=== PATIENT | male | born 1955 | race Caucasian/White ===

== ENCOUNTER 2017-02-06 21:07 | Inpatient (IN) ==
[2017-02-06] MEDS ORDERED: DUONEB (A & A) INH ONE (23:01)
[2017-02-07 00:09] LABS: BASO% 0.1 % (0.0-0.8); EOS# 0.86 X1000 (0.0-0.7); EOS% 4.2 % (0.0-10.0); HEMATOCRIT 28.4 % (42.0-52.0); HEMOGLOBIN 9.8 g/dL (14.0-18.0); IMM GRAN# 0.24 X1000 (0.0-0.04); IMM GRAN% 1.2 % (0.0-0.5); LYMPH# 2.65 X1000 (1.2-3.4); LYMPH% 12.8 % (20.5-51.1); MANUAL DIFF NEEDED? NO; MCH 28.7 PG (27-31); MCHC 34.5 g/dL (33-37); MONO# 1.93 X1000 (0.11-0.59); MONO% 9.3 % (1.7-9.3); MPV 8.5 FL (7.4-10.4); NEUT% 72.4 % (42.2-75.2); PLT 594 X1000 (130-400); RBC 3.42 XMIL (4.7-6.1)
[2017-02-07] MEDS ORDERED: VANCOMYCIN 1 GM/NS 1 GM/250 ML IVPB IV ONE ×2 (00:16→03:00)
[2017-02-07] MEDS ORDERED: MERREM 1 GM in NS 50 ML IV SCH (00:16)
[2017-02-07 00:33] LABS: AGAP 14; ALBUMIN 2.9 g/dL (3.5-5.0); ALKALINE PHOSPHATASE 59 U/L (32-122); BUN 11 mg/dL (8-22); CALCIUM 8.9 mg/dL (8.8-10.2); CHLORIDE 88 mmol/L (98-107); COSMO 262; GOT 15 U/L (10-34); GPT 35 U/L (10-44); POTASSIUM 4.1 mmol/L (3.5-5.1); SODIUM 131 mmol/L (136-145); TCO2 29 mmol/L (25-35); TOTAL BILIRUBIN 0.31 mg/dL (0.20-1.00); TOTAL PROTEIN 6.2 g/dL (6.3-8.3)
[2017-02-07 01:03] LABS: URINE MICRO REVIEW NEEDED? NO; URINE SOURCE CLEAN CATCH
[2017-02-07 01:20] LABS: BILIRUBIN URINE NEGATIVE (NEGATIVE); BLOOD URINE NEGATIVE (NEGATIVE); COLOR STRAW; GLUCOSE URINE NEGATIVE (NEGATIVE); LEUKOCYTES URINE SMALL (NEGATIVE); NITRITE URINE NEGATIVE (NEGATIVE); PH URINE 7.5; PROTEIN URINE NEGATIVE (NEGATIVE); SP GRAVITY URINE 1.003; TURBIDITY URINE CLEAR (CLEAR); UROBILINOGEN URINE NORMAL (NORMAL)
[2017-02-07 01:22] LABS: UR EPITHELIAL CELLS <10 /HPF (<10); URINE BACTERIA NEGATIVE /HPF; URINE CULTURE NEEDED? YES; URINE RBC <10 /HPF (<10); URINE WBC <10 /HPF (<10)
[2017-02-07] MEDS ORDERED: VANCOMYCIN IV PER PHARMACY MISC SCH (02:21)
--- NOTE | 2017-02-07 03:16 | HISTORY AND PHYSICAL ---
REASON FOR ADMISSION: A 2-week history of a cough productive of greenish sputum, shortness of breath, fever, and chills. HISTORY OF PRESENT ILLNESS: Mr. Felix Soto is a 61-year-old male with a past medical history of COPD on home O2, prior alcohol and tobacco abuse which he stopped over the last couple of years, reflux disease, and hypertension. His last admission here was in July of 2016. At that time, he had severe COPD with prior scarring and pneumonia. He was treated and says since then, he has been doing rather okay up until 2 weeks ago when he developed cough productive of greenish sputum, fever, chills, and mild shortness of breath. He was seen in the ER over a week ago, and started on Zithromax and an oral cephalosporin. He says after 4 days after being on this regimen, his fever and chills subsided and so did his cough but a few days after completing this course of antibiotics, his fever, chills, and shortness of breath have returned. This is the reason why he has come back to the hospital. He denies any arthralgias or rash. He admits to having just a 5- pound weight loss over the last 4 months. He denies any contact with anyone with chronic cough except his who has a chronic cough from COPD. This has not gotten any worse, neither has she lost any weight. No history of travel. He denies any PND, orthopnea, leg swelling, or chest pain. He denies any contact with any sick animals. No wheezing. He has a longstanding history of chronic steroid use but this has not increased nor decreased. REVIEW OF SYSTEMS: Twelve system review is negative. Positive findings per HPI. ALLERGIES: Penicillin which causes a rash. Clindamycin causes airway obstruction. HOME MEDICATIONS: He takes Norvasc 2.5 mg b.i.d., Zanaflex 4 mg at bedtime, [place] 10 mg q.6, and he takes Advair 250/50 one puff b.i.d. FAMILY HISTORY: Notable for PE in his dad, CHF in mother. No diabetes. SURGICAL HISTORY: He has only had hand surgery following trauma. SOCIAL HISTORY: He is . Lives with his . Stopped smoking and drinking alcohol 2 years ago. Denies any active illicit drug use. He denies any IV drug abuse in the past. LAB WORK: Chest x-ray reviewed by me shows a lot of scarring in both lungs. However, he appears to have multiple cavitary type lesions in the right upper lobe and a few in the left upper lobe. His white count is 20,000, hemoglobin and hematocrit 9 and 28, platelets 593,000. Chemistry is pending. PHYSICAL EXAMINATION: VITAL SIGNS: Temperature is 98.1 degrees, respirations 15, heart rate 88, blood pressure 105/55, he is 98% on room air. GENERAL: He is a pleasant, chronically ill, middle-aged, man who is not in acute distress. He is A and O x3. Normal mood and affect. HEENT: Head is normocephalic, atraumatic. Eyes: PERRLA, EOMI. Anicteric and not pale. ENT and oral exam is grossly negative for any erythema or pharyngeal exudates. No central cyanosis is noted. NECK: Supple. No JVD, carotid bruits, or thyromegaly. Good skin turgor. CHEST: Decreased entry in both lung arellano with a few expiratory wheezes. No crepitations. Chest is also barrel-shaped. CARDIOVASCULAR: First and second heart sounds heard. No gallops, murmurs, rubs. Rhythm is regular. ABDOMEN: Abdomen is full, soft. No focal areas of tenderness. No rebound or guarding. No mass or organomegaly. Bowel sounds are hyperactive. RECTAL: Examination deferred at this time. EXTREMITIES: No edema, clubbing, or peripheral cyanosis. Pulses distally intact with good volume and symmetrical. NEUROLOGICAL: No focal deficits. SKIN: Intact. No breakdown, lesions, or erythema. MUSCULOSKELETAL: Examination is grossly normal otherwise. ASSESSMENT: 1. Bilateral pneumonia with cavitary lesions. This could represent usually nosocomial pathogen (i.e., pseudomonas) colonizing his lungs. However, cannot rule out staphylococcal as a likely pathogen here too. Fungal pathogens are need to be considered. In my estimation, based on the patient's history, tuberculosis is highly unlikely due to the fact that he has multiple cavitary lesions but does not necessarily rule it out. Other differentials one needs to consider will be autoimmune diseases, highly unlikely. The patient will need to be worked up for immunodeficiency disorder. However, his chronic use of steroids and his defective lung architecture puts him at risk for a host of pathogens. We will start the patient on broad- spectrum coverage for pseudomonas and staphylococcus. Legionella also needs to be considered, although I do not think it is the primary pathogen here. If it does not get better, we will consider atypical coverage. Consult infectious disease and pulmonology to see the patient. 2. Chronic obstructive pulmonary disease. We will start the patient on short-acting bronchodilators, consider long-acting bronchodilators. However, due to the fact this patient has had recurrent pneumonias, I will not put him on inhaled corticosteroid therapy as this may increase his risk for recurrent pneumonias. Consider long-acting bronchodilators and long- acting muscarinic agents for better bronchodilation which have been shown to be slightly better than the combination of inhaled corticosteroids and long-acting bronchodilators. This also has the benefit of decreasing the risk of inhaled corticosteroids. 3. Hypertension. Continue treatment with Norvasc. 4. Other additional studies and tests. Do a QuantiFERON test, AFB smear, human immunodeficiency virus, some fungal urinary tests, and even Legionella urinary test, just to mention a few. I will defer to infectious disease and pulmonology for further workup. My rationale for this patient having more of a bacterial etiology is due to the fact that he had a good response a week ago to antibacterial agents. The patient only relapsed after he completed a course of treatment which makes me believe that this could be bacterial in origin. cc: MD Carlos A Clark MD
[2017-02-07] MEDS: MILK OF MAGNESIA PO ONE ×2 (03:17→03:26)
[2017-02-07] MEDS: LOVENOX SUBQ SCH (03:17)
[2017-02-07] MEDS: NORCO-10 PO PRN ×3 (03:26→22:26)
[2017-02-07] MEDS: DUONEB (A & A) INH SCH ×6 (03:43→23:01)
[2017-02-07 07:10] LABS: BASO% 0.2 % (0.0-0.8); HEMATOCRIT 27.6 % (42.0-52.0); HEMOGLOBIN 9.4 g/dL (14.0-18.0); MANUAL DIFF NEEDED? YES; MCH 28.6 PG (27-31); MCHC 34.1 g/dL (33-37); MCV 83.9 FL (81-99); MONO# 1.57 X1000 (0.11-0.59); MONO% 8.5 % (1.7-9.3); MPV 8.5 FL (7.4-10.4); PLT 611 X1000 (130-400); RBC 3.29 XMIL (4.7-6.1)
[2017-02-07 07:12] LABS: BANDS 2 % (0-1); EOS 8 % (1-10); LYMPHS 14 % (21-51); MONO 10 % (1-9)
[2017-02-07 07:13] LABS: HYPOCHROM OCCASIONAL
--- NOTE | 2017-02-07 07:46 | Diag Imaging Result Document ---
PROCEDURE NAME: CHEST-2 VIEWS - 02/06/2017 CHEST X-RAY, 2 VIEWS: COMPARISON: 01/30/2014. FINDINGS: Stable diffuse infiltrate throughout the right upper lobe. This is superimposed on biapical pulmonary fibrosis. Stable severe COPD. Heart size is normal. IMPRESSION: Stable right upper lobe infiltrate superimposed on significant biapical pulmonary fibrosis.
[2017-02-07 07:57] LABS: AGAP 12; ALBUMIN 2.9 g/dL (3.5-5.0); ALKALINE PHOSPHATASE 58 U/L (32-122); BUN 7 mg/dL (8-22); CALCIUM 8.6 mg/dL (8.8-10.2); CHLORIDE 92 mmol/L (98-107); COSMO 262; GOT 13 U/L (10-34); GPT 31 U/L (10-44); POTASSIUM 3.6 mmol/L (3.5-5.1); SODIUM 132 mmol/L (136-145); TCO2 28 mmol/L (25-35); TOTAL BILIRUBIN 0.35 mg/dL (0.20-1.00); TOTAL PROTEIN 6.4 g/dL (6.3-8.3)
--- NOTE | 2017-02-07 09:03 | CONSULTATION ---
DATE OF CONSULTATION: 02/07/2017 CONCLUSION: Patient is admitted to the hospital with a right upper lobe infiltrate. 1-2 weeks ago he was given antibiotics through the emergency room but they failed to clear his infiltrate. The hospitalist who looked at the x-ray said it was cavitary. However, the x-ray from the patient's 1st visit to the emergency room and the 1 from last night show a right upper lobe infiltrate but no evidence of cavities were mentioned graft. The radiologist read both the x- rays and said that there was a right upper lobe infiltrate but did not mention cavities being present. Therefore, I think most likely the patient has a bacterial pneumonia. He does have pulmonary fibrosis as an underlying disease and this may have caused the infiltrate to look like there were cavities in it. I am also concerned that the patient may have an immunoglobulin deficiency in view of the fact that he has had recurrent episodes of pneumonia. RECOMMENDATIONS: I have placed the patient on a combination of vancomycin and cefepime. Also, I have ordered another diagnostic test, namely pneumococcal urinary antigen. Also , I plan to check the patient's immunoglobulin levels. DISCUSSION: The patient has about a 2-week history of cough with chest congestion. He says he brings up some green to yellow sputum with it. He has had fever and he is short of breath, especially with exertion. He was given a prescription for Ceftin and azithromycin from the emergency room but it did not improve his cough much at all. As mentioned above , the chest x-ray shows a right upper lobe infiltrate with no mention made of cavities. The patient's CBC shows a white count of 18,450, hemoglobin 9.4, and platelet count 611,000/ sputum Gram stain shows white cells but no bacteria. Urine culture is pending. PAST MEDICAL HISTORY/REVIEW OF SYSTEMS: Eyes and Ears: He denies difficulty hearing or seeing. Neck: No stiffness. Respiratory: See present illness. Cardiovascular: No chest pain or palpitations. GI: No nausea, vomiting, or diarrhea. : No dysuria or flank pain. Endocrine: Patient is not a diabetic. He does not have thyroid disease. Hematologic: No history of anemia or bleeding tendency. Bones, Joints, Muscles: No joint swelling or myalgia. Neurologic: No motor or sensory loss. The patient is not having seizures. The remainder of the patient's review of systems was completed and there were no further complaints. PREVIOUS HOSPITALIZATIONS AND OPERATIONS: He has been admitted before for pneumonia. He has also had surgery performed on his hand. MEDICAL DISEASES: Positive for hypertension, COPD, and degenerative joint disease of the spine. INFECTIOUS DISEASE HISTORY: Positive for pneumonia and UTI. FAMILY HISTORY: Positive for hypertension, pulmonary embolus, and congestive heart failure. SOCIAL HISTORY: [place] He stopped smoking cigarettes, drinking alcoholic beverages, and abusing drugs years ago. He is . He has dogs and cats for pets. He is disabled. PHYSICAL EXAMINATION: Vital Signs: The patient weighs 140 pounds. His temperature is 98 degrees, pulse 71, respirations 18, blood pressure is 108/60. Generally: This is an ill- appearing, middle-aged male. He is in no acute distress. Head, Eyes, Ears, Nose, and Throat: He can hear my spoken words and see near objects. His oral hygiene is very poor. He is missing many of his teeth. Some teeth appear frankly necrotic. Neck: No meningismus. Lungs: Clear to auscultation. Cardiovascular: Patient had an increased AP diameter. Abdomen: Soft and not tender. Lungs: Clear to auscultation. Cardiovascular: Heart rate is regular. Extremities: There is no leg edema. Integument: No rash noted. Neurologic: Patient is alert. He can move his extremities. There is no tremor. His sensation was intact to touch. Thank you for the consult. cc: Xander Mcclain MD [facility] SYSTEMTomasz
[2017-02-07] MEDS: PREDNISONE PO SCH (10:06)
[2017-02-07] MEDS: NORVASC PO SCH ×2 (10:07→22:26)
[2017-02-07] MEDS: MAXIPIME 2 GM/NS 2 GM/100 ML IVPB IV SCH ×2 (10:21→22:22)
[2017-02-07 11:09] LABS: HIV ANTIBODY SCREEN SEE COMMENTS
[2017-02-07] MEDS: VANCOMYCIN 1,500 MG in NS 250 ML IV SCH (16:16)
[2017-02-07] MEDS: PEPCID PO SCH (22:26)
[2017-02-07] MEDS: ZANAFLEX PO SCH (22:26)
[2017-02-08] MEDS: VANCOMYCIN 1,500 MG in NS 250 ML IV SCH (03:21)
[2017-02-08] MEDS: LOVENOX SUBQ SCH (03:21)
[2017-02-08] MEDS: DUONEB (A & A) INH SCH ×6 (03:40→22:47)
[2017-02-08 06:39] LABS: MANUAL DIFF NEEDED? NO
[2017-02-08 06:49] LABS: BASO% 0.2 % (0.0-0.8); EOS# 0.97 X1000 (0.0-0.7); EOS% 5.2 % (0.0-10.0); HEMATOCRIT 25.8 % (42.0-52.0); HEMOGLOBIN 8.7 g/dL (14.0-18.0); IMM GRAN# 0.15 X1000 (0.0-0.04); IMM GRAN% 0.8 % (0.0-0.5); LYMPH# 2.92 X1000 (1.2-3.4); LYMPH% 15.6 % (20.5-51.1); MCH 28.3 PG (27-31); MCHC 33.7 g/dL (33-37); MONO# 1.58 X1000 (0.11-0.59); MONO% 8.5 % (1.7-9.3); MPV 8.7 FL (7.4-10.4); NEUT% 69.7 % (42.2-75.2); PLT 521 X1000 (130-400); RBC 3.07 XMIL (4.7-6.1)
[2017-02-08 07:12] LABS: AGAP 11; BUN 6 mg/dL (8-22); CALCIUM 8.3 mg/dL (8.8-10.2); CHLORIDE 91 mmol/L (98-107); COSMO 254; POTASSIUM 4.1 mmol/L (3.5-5.1); SODIUM 128 mmol/L (136-145); TCO2 26 mmol/L (25-35)
[2017-02-08] MEDS: MAXIPIME 2 GM/NS 2 GM/100 ML IVPB IV SCH ×2 (08:19→21:47)
[2017-02-08] MEDS: PEPCID PO SCH ×2 (08:19→21:46)
[2017-02-08] MEDS: PREDNISONE PO SCH (08:19)
[2017-02-08] MEDS: NORVASC PO SCH ×2 (08:19→21:46)
[2017-02-08] MEDS: NORCO-10 PO PRN ×3 (08:19→21:46)
--- NOTE | 2017-02-08 11:26 | CONSULTATION ---
DATE OF CONSULTATION: 02/08/2017 REFERRING PHYSICIAN: Dr. Nava. CHIEF COMPLAINT: Productive cough with greenish sputum, shortness of breath, fever and chills. HISTORY OF PRESENT ILLNESS: This is a 61-year-old male with a past medical history of COPD. He is currently on home O2. He has a complaint of a productive cough with greenish thick sputum and mild shortness of breath. His O2 sat is 100% on room air. ALLERGIES: Penicillin and clindamycin. HOME MEDICATIONS: He takes prednisone 20 mg p.o. b.i.d. Hydrocodone 10 mg per 325 mg 1 every 6 hours as needed. Advair Diskus 1 puff twice a day. Azithromycin 250 mg as directed. Norvasc 2.5 mg b.i.d. Albuterol every 6 hours as needed. Atrovent nebs every 6 hours as needed. Combivent Respimat two puffs every 6 hours as needed. Zanaflex 4 mg p.o. at bedtime. PAST SURGICAL HISTORY: Hand surgery following trauma. PAST MEDICAL HISTORY: Hypertension, COPD, bronchitis. FAMILY HISTORY: Notable for PE in his dad, CHF in his mother. No diabetes. SOCIAL HISTORY: Lives with his . Past history of smoking and drinking 2 years ago. Denies illicit drug use. LABORATORY DATA: White blood cells 18.66 red blood cells 3.07, hemoglobin 8.7, hematocrit 25.8. Sodium 128, chloride 91, BUN 6, creatinine 0.5, calcium 8.3. REVIEW OF SYSTEMS: A 10-point review of systems was obtained and the pertinent is listed in the HPI, otherwise noncontributory. PHYSICAL EXAMINATION: VITAL SIGNS: Temperature 98.4, blood pressure 131/95, pulse 84, respirations 21, O2 sat 100%.General: Appears chronically ill, alert and oriented x3. Normal mood and affect. HEENT: Head is normocephalic, atraumatic. Eyes: PERRLA noted. Neck: Supple. Chest: Decreased entry, wheezes bilaterally and barrel shaped chest. Cardiovascular: S1 and S2 auscultated. Regular rate and rhythm. Abdomen: Soft, nontender. Bowel sounds present in all 4 quadrants. Extremities: Without edema or cyanosis. Good pedal pulses bilaterally. Skin: Warm, dry and intact. ASSESSMENT AND PLAN: 1. Bilateral pneumonia. Continue vancomycin, prednisone. 2. COPD. Continue bronchodilators. 3. Hypertension. Continue current medications. Thank you for the courtesy of this consult. Dictated by ELVIN Mitchell for Stefania Bullock MD cc: ELVIN Mitchell MD
--- NOTE | 2017-02-08 11:37 | Diag Imaging Result Document ---
PROCEDURE NAME: CT THORAX W/O CONTRAST - 02/08/2017 CT CHEST: A CT dose reduction protocol was used. COMPARISON: 03/17/2015. FINDINGS: There is extensive consolidation of the right upper lobe containing some noticeable air bronchograms. This also extends into the right middle lobe. The consolidation is very irregular owing to the extensive bullous emphysema in the lung apices. The left upper lobe infiltrate that was present in 2014 has largely resolved into some pulmonary scarring. There is mucus plugging of segmental airways in the posterior segment of the left upper lobe. There is diffuse chronic bronchitis. Heart size remains normal. No acute abnormalities in the upper abdomen. No pleural effusion. Bony structures are intact. IMPRESSION: 1. Severe COPD. 2. Extensive right upper lobe pneumonia. 3. Mucus plugging of left upper lobe segmental bronchi. 4. Reactive mediastinal lymphadenopathy. [facility]
--- NOTE | 2017-02-08 14:47 | PROGRESS NOTE ---
DATE: 02/08/2017 PRESENT ILLNESS: The patient is being treated for an extensive right upper lobe pneumonia with mucous plugging of left upper lobe segmental bronchi and reactive mediastinal lymphadenopathy. Patient also has severe COPD. MEDICATIONS: The patient currently is on vancomycin and cefepime. PHYSICAL EXAMINATION: Vital Signs: Temperature is 98.4 degrees, pulse 76, respirations 17, blood pressure 104/58. Generally: This is a chronically ill-appearing middle-aged male. He is in no acute distress. Lungs: Bibasilar rales. Cardiovascular: Heart rate is regular. Abdomen: Soft and nontender. LAB AND X-RAY: The patient does not have an x-ray for today. The patient's CBC shows a white count of 18,660, hemoglobin 8.7, and platelet count and creatinine 0.5 with a GFR of greater than 60. The patient had AFB smears and cultures marked to do but there was refusal to do that because of the low volume of sputum. Patient's CBC shows a white count of 18,660, hemoglobin 8.7 and platelet count is 611,000. Creatinine is 0.5. GFR is greater than 60. Immunoglobulin levels are normal. HIV is nonreactive. Legionella and pneumococcal antigens in the urine were negative. ASSESSMENT AND PLAN: The patient has a right upper lobe pneumonia. My plan would be to continue treating him with the current antibiotics pending culture results. COMORBIDITIES: Include COPD and poor oral hygiene and continuation of the patient to stop smoking cigarettes or drinking alcoholic beverages or abusing drugs. Comorbidities include cigarette smoking and congestive heart failure. cc: Xander Mcclain MD
--- NOTE | 2017-02-08 15:19 | PROGRESS NOTE ---
DATE: 02/08/2017 SUBJECTIVE: Patient notes that he is feeling a little bit better. Still having some increased work of breathing, dyspnea on exertion. Denies any chest pain, fevers. Denies any change in the production of his cough. Denies any headaches or change in vision. PHYSICAL: Temp 98 degrees, pulse 76, respiratory 17, BP 104/58, sat 98% on room air.General: Patient is a well-developed well-nourished male who appears older than his stated age. He is awake, alert, oriented. He is sitting in the bed watching television. He currently is in mild respiratory distress. HEENT: Normocephalic. Neck: Supple. CV: Regular rate and rhythm. Chest: Decreased breath sounds. Wheezing bilaterally but equal bilaterally. Abdomen: Soft. Extremities: Moves all extremities. No edema. Neurologic: No changes. LABS: WBC is 18. Hemoglobin and hematocrit 8 and 27. Sodium 128. ASSESSMENT: 1. Hyponatremia. Sodium continues to drift down slowly. 2. COPD with exacerbation. He is wheezing. 3. Bilateral pneumonia with cavitary lesions. 4. Hypertension. PLAN: We will continue patient on his current antibiotics. Will recheck his sodium in the a.m. Continue to follow. Further orders as needed. cc: Rigo Nava MD
[2017-02-08] MEDS: VANCOMYCIN 1,700 MG in NS 250 ML IV SCH (16:34)
[2017-02-08] MEDS: ZANAFLEX PO SCH (21:46)
[2017-02-09] MEDS: DUONEB (A & A) INH SCH ×6 (03:25→23:09)
[2017-02-09] MEDS: VANCOMYCIN 1,700 MG in NS 250 ML IV SCH ×2 (04:39→16:14)
[2017-02-09] MEDS: NORCO-10 PO PRN ×3 (04:48→17:31)
[2017-02-09] MEDS: LOVENOX SUBQ SCH (06:11)
[2017-02-09 06:31] LABS: HEMATOCRIT 26.2 % (42.0-52.0); HEMOGLOBIN 8.8 g/dL (14.0-18.0); MCH 28.9 PG (27-31); MCHC 33.6 g/dL (33-37); MCV 85.9 FL (81-99); MPV 8.6 FL (7.4-10.4); RBC 3.05 XMIL (4.7-6.1)
[2017-02-09 06:49] LABS: AGAP 12; ALBUMIN 3.1 g/dL (3.5-5.0); ALKALINE PHOSPHATASE 63 U/L (32-122); BUN 7 mg/dL (8-22); CALCIUM 8.8 mg/dL (8.8-10.2); CHLORIDE 90 mmol/L (98-107); COSMO 256; GOT 22 U/L (10-34); GPT 30 U/L (10-44); MAGNESIUM 1.5 mg/dL (1.5-2.7); POTASSIUM 4.6 mmol/L (3.5-5.1); SODIUM 129 mmol/L (136-145); TCO2 27 mmol/L (25-35); TOTAL BILIRUBIN 0.31 mg/dL (0.20-1.00); TOTAL PROTEIN 5.8 g/dL (6.3-8.3)
[2017-02-09] MEDS: NORVASC PO SCH ×2 (10:45→21:19)
[2017-02-09] MEDS: PREDNISONE PO SCH (10:45)
[2017-02-09] MEDS: PEPCID PO SCH ×2 (10:46→21:19)
[2017-02-09] MEDS: MAXIPIME 2 GM/NS 2 GM/100 ML IVPB IV SCH ×2 (10:46→21:21)
--- NOTE | 2017-02-09 11:39 | PROGRESS NOTE ---
DATE: 02/09/2017 SUBJECTIVE: The patient states he may be feeling a little bit better. Notes that he is still having a productive cough although less production. He is trying to get out of bed but gets short of breath. Denies any chest pains or palpitations when he attempts to ambulate. PHYSICAL EXAMINATION: Vital Signs: Temperature 98, pulse 78, respiratory rate 12, blood pressure 115/63. Satting 100% on room air. General: Patient is awake, alert. He is currently in no respiratory distress. He is noted to have a little bit of wheezing. HEENT: Normocephalic, atraumatic. Neck: Supple. Cardiovascular: Regular rate. No appreciable murmurs. Chest decreased but equal breath sounds bilaterally. Positive wheezing. Positive rhonchi. Abdomen: Soft. Extremities: Moves all extremities. No edema. Neurologic: No changes. ASSESSMENT: 1. Bilateral pneumonia with cavitary lesions currently on cefepime and vancomycin. We will continue both of these. 2. Leukocytosis. White count remains at 18-20. Certainly this could be a prednisone effect. He does not appear to have any worsening infectious symptoms. We will repeat chest x-ray in the a.m. 3. Chronic obstructive pulmonary disease. Certainly appears to be his stable baseline currently. 4. Hypertension. Blood pressure is stable at 102-115 systolic. 5. Chronic congestive heart failure, systolic, stable. 6. Chronic tobacco abuse. Stable. cc: Rigo Nava MD
[2017-02-09] MEDS: ZANAFLEX PO SCH (21:19)
[2017-02-10] MEDS: NORCO-10 PO PRN ×4 (00:14→18:52)
[2017-02-10] MEDS: VANCOMYCIN 1,700 MG in NS 250 ML IV SCH (03:10)
[2017-02-10] MEDS: DUONEB (A & A) INH SCH ×6 (03:30→23:03)
[2017-02-10] MEDS: LOVENOX SUBQ SCH (06:23)
[2017-02-10] MEDS: MAXIPIME 2 GM/NS 2 GM/100 ML IVPB IV SCH ×2 (10:29→20:35)
[2017-02-10] MEDS: PEPCID PO SCH ×2 (10:29→20:36)
[2017-02-10] MEDS: PREDNISONE PO SCH (10:29)
[2017-02-10] MEDS: NORVASC PO SCH ×2 (10:29→20:35)
--- NOTE | 2017-02-10 13:13 | Diag Imaging Result Document ---
PROCEDURE NAME: CHEST-2 VIEWS - 02/10/2017 CHEST, 2 VIEWS: FINDINGS: Compared to 02/06/2017. There are severe COPD changes. The right upper lobe opacity appears stable. The left upper lobe opacity appears stable. Compared to the previous exam, there are no significant interval changes identified. IMPRESSION: Stable exam compared to 02/06/2017. MTDD
--- NOTE | 2017-02-10 13:36 | PROGRESS NOTE ---
DATE: 02/10/2017 SUBJECTIVE: Patient notes he is feeling tremendously better this morning. Denies any change in his cough. Denies any change in his congestion. He states that he is hoping that he can home in the a.m. PHYSICAL EXAMINATION: Vital Signs: Temperature 97, pulse 80, respiratory rate 10, blood pressure 92/66, satting 100% percent on room air. General: Patient is awake, alert. He is in no current respiratory distress. He states he is feeling better. HEENT: Normocephalic, atraumatic. Neck: Supple. CV: Regular rate. Chest: Relatively clear. Abdomen: Soft. Extremities: Moves all extremities. Neurologic: No focal changes. Skin: Warm and dry. No rashes. ASSESSMENT: 1. Bilateral pneumonia with cavitary lesions continues to improved. 2. Chronic obstructive pulmonary disease with mild exacerbation. 3. Hypertension. 4. Congestive heart failure. 5. Tobacco abuse. 6. Hyponatremia. 7. Leukocytosis. PLAN: Patient currently appears to be much improved from initial admission. We will stop vancomycin and continue to follow. Hopefully home in a day or two. cc: Rigo Nava MD
[2017-02-10] MEDS ORDERED: MILK OF MAGNESIA PO ONE (18:55)
[2017-02-10] MEDS: ZANAFLEX PO SCH (20:35)
[2017-02-11] MEDS: NORCO-10 PO PRN ×4 (01:27→23:12)
[2017-02-11] MEDS: DUONEB (A & A) INH SCH ×6 (03:45→23:16)
[2017-02-11] MEDS: LOVENOX SUBQ SCH (05:08)
[2017-02-11] MEDS: PREDNISONE PO SCH (09:40)
[2017-02-11] MEDS: NORVASC PO SCH ×2 (09:40→20:12)
[2017-02-11] MEDS: MAXIPIME 2 GM/NS 2 GM/100 ML IVPB IV SCH ×2 (09:40→20:12)
[2017-02-11] MEDS: PEPCID PO SCH ×2 (09:40→20:13)
[2017-02-11] MEDS ORDERED: DULCOLAX PR ONE (09:58)
--- NOTE | 2017-02-11 11:02 | Diag Imaging Result Document ---
PROCEDURE NAME: ABDOMEN FLAT/UPRIGHT - 02/11/2017 FLAT AND UPRIGHT ABDOMEN, TWO VIEWS: FINDINGS: No free air beneath the diaphragm. There is prominent stool in the mid and distal colon. No organomegaly. The patient has scoliosis with degenerative spine changes. There are several pelvic calcifications believed to be phleboliths. IMPRESSION: Constipation.
[2017-02-11] MEDS: MIRALAX PO SCH ×2 (11:27→20:13)
[2017-02-11] MEDS: LACTULOSE PO SCH ×2 (11:27→20:13)
[2017-02-11] MEDS ORDERED: NS 1,000 ML IV SCH (19:00)
[2017-02-11] MEDS ORDERED: VANCOMYCIN IV PER PHARMACY MISC SCH (19:45)
[2017-02-11] MEDS: ZANAFLEX PO SCH (20:13)
[2017-02-11 21:07] LABS: URINE MICRO REVIEW NEEDED? NO; URINE SOURCE CLEAN CATCH
[2017-02-11 21:14] LABS: COLOR YELLOW; TURBIDITY URINE CLEAR (CLEAR)
[2017-02-11 21:15] LABS: BILIRUBIN URINE NEGATIVE (NEGATIVE); BLOOD URINE NEGATIVE (NEGATIVE); GLUCOSE URINE NEGATIVE (NEGATIVE); LEUKOCYTES URINE NEGATIVE (NEGATIVE); NITRITE URINE NEGATIVE (NEGATIVE); PH URINE 7.5; PROTEIN URINE NEGATIVE (NEGATIVE); SP GRAVITY URINE 1.005; UROBILINOGEN URINE NORMAL (NORMAL)
--- NOTE | 2017-02-11 21:15 | PROGRESS NOTE ---
DATE: 02/11/2017 SUBJECTIVE: The patient is sitting up in bed and states that he feels good and wants to go home. He has no complaints except that he has not had a bowel movement in 5 days. OBJECTIVE: Vital Signs: Temperature 99 degrees, blood pressure 115/65, heart rate 85, respirations 18, O2 saturations 99% on room air. General: This is a chronically ill-appearing, elderly male, sitting up in bed. Psych: In no acute distress. HEENT: Normocephalic atraumatic. Heart: S1, S2. Normal. Regular rate and rhythm. Lungs: Clear to auscultation bilaterally. No crackles. No rales. Abdomen: Positive bowel sounds. Soft, nontender, nondistended. Extremities: No edema. No cyanosis. Neurological: Patient is alert and oriented x3. LABS: CBC: White blood cell count 18, hemoglobin 8.8, hematocrit 26, platelets 525,000. Chem: Sodium 129, potassium 4.6, chloride 90, CO2 27, BUN 7, creatinine 0.5, glucose 80. ASSESSMENT AND PLAN: 1. Extensive right upper lobe pneumonia. We will continue on the current IV antibiotic regimen as directed by Dr. Mcclain. Continue with incentive spirometry, supplemental oxygen ,and bronchodilator therapy. 2. Constipation. We will start the patient on scheduled laxatives. 3. Severe chronic obstructive pulmonary disorder. Continue on bronchodilator therapy and supplemental oxygen. 4. Anemia. We will check iron studies. 5. Hyponatremia. We will start the patient on gentle IV fluid hydration. We will also check a urine osmolality and urine sodium. 6. Chronic back pain. Continue on p.r.n. [place]. 7. Deep vein thrombosis prophylaxis. Continue on Lovenox. cc: Teresa Mejia MD
[2017-02-11 21:16] LABS: UR EPITHELIAL CELLS <10 /HPF (<10); URINE BACTERIA NEGATIVE /HPF; URINE RBC <10 /HPF (<10); URINE WBC <10 /HPF (<10)
[2017-02-11] MEDS: VANCOMYCIN 1.7 GM in NS 250 ML IV SCH (22:18)
--- NOTE | 2017-02-11 22:30 | PROGRESS NOTE ---
DATE: 02/11/2017 PRESENT ILLNESS: The patient has bilateral extensive upper lobe pneumonia with possible mucus plugging of bronchus. The patient has severe COPD. MEDICATIONS: The patient is receiving IV cefepime and vancomycin. PHYSICAL EXAMINATION: Vital Signs: Temperature is 99.4 degrees, pulse 85, respirations 18, blood pressure 115/65. Generally: This is a chronically ill-appearing, middle-aged male. He is in no acute distress. Lungs: Clear to auscultation. Cardiovascular: Regular heart rate. Abdomen: Soft and nontender. Thorax: The patient has an increased AP diameter of the chest. LAB AND X-RAY: The patient's CBC today showed a white count of 18,410, hemoglobin 8.8, and platelet count 525,000. Creatinine is 0.5. GFR is greater than 60. Chest x-ray shows stable bilateral opacities. ASSESSMENT AND PLAN: The patient has bilateral upper lobe pneumonia. My plan is to have a PICC put in the patient and send the patient home on IV cefepime and vancomycin which he is receiving here. I have put in a consultation for [facility] to supply the antibiotic and I have requested that the patient see me in the office 2 weeks after discharge. COMORBIDITIES: COPD, poor oral hygiene, cigarette smoking, alcohol consumption and congestive heart failure. cc: Xander Mcclain MD
[2017-02-12] MEDS: DUONEB (A & A) INH SCH ×6 (04:16→23:25)
[2017-02-12] MEDS: NORCO-10 PO PRN ×3 (05:48→18:13)
[2017-02-12] MEDS: LOVENOX SUBQ SCH (05:48)
[2017-02-12 06:24] LABS: BASO% 0.2 % (0.0-0.8); EOS# 1.26 X1000 (0.0-0.7); HEMATOCRIT 26.3 % (42.0-52.0); IMM GRAN# 0.09 X1000 (0.0-0.04); IMM GRAN% 0.5 % (0.0-0.5); LYMPH# 1.69 X1000 (1.2-3.4); LYMPH% 9.5 % (20.5-51.1); MANUAL DIFF NEEDED? YES; MCH 28.8 PG (27-31); MCHC 34.2 g/dL (33-37); MONO# 1.41 X1000 (0.11-0.59); MONO% 7.9 % (1.7-9.3); MPV 8.8 FL (7.4-10.4); NEUT% 74.9 % (42.2-75.2); PLT 547 X1000 (130-400); RBC 3.13 XMIL (4.7-6.1)
[2017-02-12 06:29] LABS: INR 1.08; PROTIME 11.4 Seconds (9.2-11.7)
[2017-02-12 06:36] LABS: AGAP 12; BUN 7 mg/dL (8-22); CALCIUM 8.7 mg/dL (8.8-10.2); CHLORIDE 92 mmol/L (98-107); COSMO 260; POTASSIUM 4.1 mmol/L (3.5-5.1); SODIUM 131 mmol/L (136-145); TCO2 27 mmol/L (25-35)
[2017-02-12 06:59] LABS: EOS 2 % (1-10); LYMPHS 12 % (21-51); MONO 2 % (1-9)
[2017-02-12 07:00] LABS: BANDS 2 % (0-1); HYPOCHROM 1+
[2017-02-12] MEDS ORDERED: FLEET MINERAL OIL ENEMA PR ONE (09:00)
[2017-02-12] MEDS: MAXIPIME 2 GM/NS 2 GM/100 ML IVPB IV SCH ×2 (09:51→21:01)
[2017-02-12] MEDS: LACTULOSE PO SCH (09:51)
[2017-02-12] MEDS: NORVASC PO SCH ×2 (09:52→21:02)
[2017-02-12] MEDS: PREDNISONE PO SCH (09:52)
[2017-02-12] MEDS: MIRALAX PO SCH (09:52)
[2017-02-12] MEDS: PEPCID PO SCH ×2 (09:52→21:02)
[2017-02-12] MEDS: VANCOMYCIN 1.7 GM in NS 250 ML IV SCH ×2 (11:50→21:10)
--- NOTE | 2017-02-12 13:29 | Diag Imaging Result Document ---
PROCEDURE NAME: CHEST-1 VIEW - 02/12/2017 PORTABLE CHEST X-RAY: COMPARISON: 02/10/2017. FINDINGS: There is worsening opacification in the coarse, distorted right upper lobe. This appears mostly as fluid accumulation in pre-existing bullae or cavities. Stable scarring and nodular opacity at the left apex. Stable COPD changes. IMPRESSION: Significant worsening opacification in the right lung apex, in the distorted, destroyed lung consistent with fluid filling pre-existing cavities/bullae.
--- NOTE | 2017-02-12 15:54 | PROGRESS NOTE ---
DATE: 02/12/2017 SUBJECTIVE: The patient is sitting up in bed. He states that he has had 2 bowel movements so far between last night and this morning. OBJECTIVE: Vital Signs: Temperature 97.9 degrees, blood pressure 97/52, heart rate 76, respirations 20, O2 saturations 98% on room air. General: This is a chronically ill-appearing male lying in bed in no acute distress. Head: Normocephalic, atraumatic. Heart: S1, S2. Normal. Regular rate and rhythm. Lungs: Equal air entry bilaterally. No wheezing. No rales. Abdomen: Positive bowel sounds. Soft, nontender, nondistended. Extremities: No edema. No cyanosis. No calf tenderness. Neurologic: The patient is alert and oriented x3. LABS: White blood cell count 17, hemoglobin 9, hematocrit 26, platelets 547,000. Sodium 131, potassium 4.1, chloride 92, CO2 27, BUN 7, creatinine 0.5, glucose 85. ASSESSMENT AND PLAN: 1. Bilateral upper lobe pneumonia. The chest x-ray done today shows worsening of the pneumonia. Will defer to Dr. Mcclain regarding the antibiotic therapy. 2. Severe chronic obstructive pulmonary disease. Continue with bronchodilator therapy and supplement. 3. Hyponatremia. Slowly improving. Continue on IV fluid hydration. 4. Constipation. Resolved. The patient has had 2 bowel movements. Will continue on scheduled laxatives. 5. Chronic back pain. Continue on [place]. 6. Deep vein thrombosis prophylaxis. Continue on Lovenox. 7. Disposition. The patient will be discharged home with IV antibiotics. That will be followed by [facility] once cleared by Dr. Mcclain. cc: Teresa Mejia MD
--- NOTE | 2017-02-12 18:33 | PROGRESS NOTE ---
DATE: 02/12/2017 PRESENT ILLNESS: The patient has extensive upper lobe pneumonia with possible mucous plugging of the bronchus. Patient also has severe COPD. MEDICATIONS: The patient is receiving IV vancomycin and cefepime. PHYSICAL EXAMINATION: Vital Signs: Temperature is 97.8 degrees, pulse 87, respirations 16, blood pressure 126/98. General: This is a chronically ill-appearing, middle-aged male. He is in no acute distress. Thorax: He has an increased AP diameter of the chest. Cardiovascular: Heart rate is regular. Lungs: Clear to auscultation. Abdomen: Soft and nontender. Extremities: Patient has a PICC in the right arm. LABORATORY AND X-RAY: Chest x-ray shows worse right upper lobe opacification with fluid filling cavities. The patient's CBC today showed a white count of 17,880, hemoglobin 9 , and platelet count 547,000. Creatinine is 0.5. GFR is greater than 60. ASSESSMENT AND PLAN: 1. We were going to be sending the patient home today on IV antibiotics, but since the x-ray looks worse, Dr. Bullock plans to bronchoscope the patient tomorrow and further treatment will be dependent on what is found at the bronchoscopy. 2. Comorbidities include chronic obstructive pulmonary disease, poor oral hygiene, cigarette smoking, alcohol consumption and congestive heart failure. cc: Xander Mcclain MD MTDD
[2017-02-12] MEDS: ZANAFLEX PO SCH (21:02)
[2017-02-13] MEDS: NORCO-10 PO PRN ×4 (00:26→19:36)
[2017-02-13] MEDS: DUONEB (A & A) INH SCH ×6 (02:50→22:46)
[2017-02-13] MEDS: COLACE PO SCH ×3 (06:10→22:20)
[2017-02-13] MEDS: MOVANTIK PO SCH (06:27)
[2017-02-13] MEDS: LOVENOX SUBQ SCH (06:27)
[2017-02-13 08:18] LABS: BASO% 0.3 % (0.0-0.8); EOS# 1.15 X1000 (0.0-0.7); EOS% 5.9 % (0.0-10.0); HEMATOCRIT 25.3 % (42.0-52.0); HEMOGLOBIN 8.4 g/dL (14.0-18.0); IMM GRAN# 0.08 X1000 (0.0-0.04); IMM GRAN% 0.4 % (0.0-0.5); LYMPH# 1.76 X1000 (1.2-3.4); MANUAL DIFF NEEDED? YES; MCH 27.9 PG (27-31); MCHC 33.2 g/dL (33-37); MCV 84.1 FL (81-99); MONO# 1.16 X1000 (0.11-0.59); MONO% 5.9 % (1.7-9.3); NEUT% 78.5 % (42.2-75.2); PLT 507 X1000 (130-400); RBC 3.01 XMIL (4.7-6.1)
[2017-02-13 08:32] LABS: AGAP 12; BUN 6 mg/dL (8-22); CALCIUM 8.8 mg/dL (8.8-10.2); CHLORIDE 91 mmol/L (98-107); COSMO 254; POTASSIUM 3.9 mmol/L (3.5-5.1); SODIUM 128 mmol/L (136-145); TCO2 25 mmol/L (25-35)
[2017-02-13 08:49] LABS: LYMPHS 4 % (21-51); MONO 4 % (1-9)
[2017-02-13] MEDS: PREDNISONE PO SCH (09:46)
[2017-02-13] MEDS: NORVASC PO SCH ×4 (09:47→22:20)
[2017-02-13] MEDS: PEPCID PO SCH ×3 (09:47→22:21)
[2017-02-13] MEDS: MAXIPIME 2 GM/NS 2 GM/100 ML IVPB IV SCH ×3 (10:07→22:20)
[2017-02-13] MEDS ORDERED: XYLOCAINE 2% ONE (10:31)
[2017-02-13] MEDS ORDERED: XYLOCAINE 2% VISCOUS ONE (10:31)
[2017-02-13] MEDS ORDERED: SODIUM CHLORIDE 0.9% 20 ML ONE (10:46)
[2017-02-13] MEDS ORDERED: EPINEPHRINE ONE (10:46)
[2017-02-13] MEDS ORDERED: FENTANYL ONE (11:50)
[2017-02-13] MEDS ORDERED: VERSED ONE (11:50)
[2017-02-13] MEDS ORDERED: DIPRIVAN 1% ONE (11:51)
--- NOTE | 2017-02-13 12:09 | OPERATIVE NOTE ---
PROCEDURE DATE: 02/13/2017 REFERRING PHYSICIAN: Dr. Xander Mcclain. PROCEDURE: Bronchoscopy. INDICATION: Extensive pneumonia, worsening. DESCRIPTION: Consent obtained. Conscious sedation administered via Anesthesia Department. Fluoroscopy scanning used for sampling. The flexible bronchoscope was passed with local anesthesia through the right nostril. Normal vocal cord movements. All major segments visualized. No significant endobronchial lesions. With fluoroscopy scanning, we visualized all major segments, took washings for cultures and cytology from all major segments, and then did brushing from right upper lobe area. Sent for microbiology. Patient tolerated the procedure well. Fluoroscopy scanning afterward showed no pneumothorax; however, an official chest x-ray is also requested. IMPRESSIONS: 1. Extensive pneumonia. 2. No endobronchial lesions. 3. Awaiting microbiology results. cc: Stefania Bullock MD
[2017-02-13] MEDS ORDERED: ANESTHESIA PB SET 88 IN 5742 ONE (12:58)
[2017-02-13] MEDS ORDERED: XYLOCAINE-MPF 2% ONE (12:58)
[2017-02-13] MEDS ORDERED: LR 1,000 ML ONE (12:58)
[2017-02-13] MEDS ORDERED: NS 500 ML ONE (13:13)
[2017-02-13] MEDS: VANCOMYCIN 1.7 GM in NS 250 ML IV SCH (13:14)
[2017-02-13] MEDS ORDERED: SAMSCA PO ONE (15:00)
--- NOTE | 2017-02-13 16:24 | PROGRESS NOTE ---
DATE: 02/13/2017 SUBJECTIVE: The patient is resting comfortably in bed. Scheduled for a bronchoscopy today. OBJECTIVE: Vital signs: Temperature 99, blood pressure 120/65 heart rate 88, respirations 14, O2 saturation 94% on room air. General: This is an elderly male lying in bed in no apparent distress. Head: Normocephalic and atraumatic. Heart: S1, S2. Normal. Regular rate and rhythm. Lungs: Coarse breath sounds bilaterally. Abdomen: Positive bowel sounds, soft , nontender. Extremities: No edema. Neurologic: The patient is alert and oriented x3. LABORATORY: White blood cell count 19, hemoglobin 8.4, hematocrit 25, platelets 507. Sodium 128, potassium 3.9, chloride 91, CO2 25, BUN 6 ASSESSMENT AND PLAN: 1. Severe bilateral lobe pneumonia. The patient is scheduled for bronchoscopy today. Continue on IV antibiotic therapy. 2. Severe chronic obstructive pulmonary disease. Continue with bronchodilator therapy and supplement. 3. Hyponatremia. Will give the patient a dose of [place] to get the sodium up. 4. Chronic back pain. Continue on p.r.n. [place]. 5. Constipation. Continue with scheduled laxatives and Movantik. 6. Deep vein thrombosis prophylaxis. We will restart Lovenox today. cc: Teresa Mejia MD MTDD
[2017-02-13] MEDS: ZANAFLEX PO SCH ×2 (19:36→22:21)
[2017-02-14] MEDS: VANCOMYCIN 1.7 GM in NS 250 ML IV SCH (01:26)
[2017-02-14] MEDS: NORCO-10 PO PRN ×2 (01:26→08:32)
[2017-02-14] MEDS: DUONEB (A & A) INH SCH ×2 (03:05→07:23)
[2017-02-14] MEDS: LOVENOX SUBQ SCH (05:31)
[2017-02-14] MEDS: MOVANTIK PO SCH (05:31)
[2017-02-14 07:57] LABS: BASO% 0.4 % (0.0-0.8); EOS% 5.6 % (0.0-10.0); HEMATOCRIT 26.4 % (42.0-52.0); HEMOGLOBIN 8.9 g/dL (14.0-18.0); IMM GRAN# 0.07 X1000 (0.0-0.04); IMM GRAN% 0.4 % (0.0-0.5); LYMPH% 9.5 % (20.5-51.1); MANUAL DIFF NEEDED? NO; MCH 28.8 PG (27-31); MCHC 33.7 g/dL (33-37); MCV 85.4 FL (81-99); MONO# 1.07 X1000 (0.11-0.59); MPV 9.4 FL (7.4-10.4); NEUT% 78.1 % (42.2-75.2); PLT 551 X1000 (130-400); RBC 3.09 XMIL (4.7-6.1)
[2017-02-14] MEDS: MAXIPIME 2 GM/NS 2 GM/100 ML IVPB IV SCH (08:32)
[2017-02-14] MEDS: NORVASC PO SCH (08:33)
[2017-02-14] MEDS: PREDNISONE PO SCH (08:33)
[2017-02-14] MEDS: COLACE PO SCH (08:33)
[2017-02-14] MEDS: PEPCID PO SCH (08:33)
[2017-02-14 08:35] VITALS: BP 108/76
[2017-02-14 09:02] LABS: AGAP 16; BUN 6 mg/dL (8-22); CHLORIDE 95 mmol/L (98-107); COSMO 268; POTASSIUM 3.7 mmol/L (3.5-5.1); SODIUM 136 mmol/L (136-145); TCO2 25 mmol/L (25-35)
--- NOTE | 2017-02-14 11:27 | PROGRESS NOTE ---
DATE: 02/14/2017 PRESENT ILLNESS: The patient has an extensive upper lobe pneumonia. He also has severe chronic obstructive pulmonary disease. Yesterday the patient underwent bronchoscopy. According to Dr. Bullock's operative note, no tumor was found and the patient had bronchial washings sent for cultures. MEDICATIONS: This is day 7 of treatment with vancomycin and cefepime. PHYSICAL EXAMINATION: Vital Signs: Temperature is 98.7 degrees, pulse 81, respirations 19, blood pressure 116/68. General: This is an ill-appearing middle-aged male, who is in no acute distress. Thorax: There is increased AP diameter of the chest. Lungs: No rales or rhonchi were heard. Cardiovascular: Heart rate is regular. Extremities: Patient has a PICC in his right arm. The site is not erythematous or swollen. LAB AND X-RAY: There is no new x-ray. The bronchial washings on Gram stain showed no bacteria. There is no new CBC or creatinine. ASSESSMENT AND PLAN: Patient has pneumonia. I plan to continue his current medications pending the results of the bronchial washing cultures. I have asked the microbiology laboratory to send me the final results on the bronchial washings. I plan to continue the patient on his current antibiotics and see him in the office 2 weeks after discharge. COMORBIDITIES: Include chronic obstructive pulmonary disease, poor oral hygiene, cigarette smoking, alcohol consumption, and congestive heart failure. I will be seeing the patient in the office 2 weeks after discharge. cc: Xander Mcclain MD
--- NOTE | 2017-02-20 17:17 | PROVIDER DOCUMENTATION ---
This chart was entered by Madison Hightower Scribe, acting as scribe for Linden Perea MD. HPI-General Adult - General Chief Complaint: Fever Stated Complaint: FEVER Time Seen by Provider: 02/06/17 21:25 Source: patient Allergies/Adverse Reactions: Patient Allergies Allergy/AdvReac Type Severity Reaction Status Date / Time Penicillins Allergy Mild RASH Verified 07/31/16 16:10 clindamycin Allergy RASH Verified 07/31/16 16:10 Home Medications: Home Medication List Medication Instructions Recorded Confirmed Last Taken Type Amlodipine Besylate [Norvasc] 2.5 mg PO BID 01/07/13 02/07/17 01/30/17 07:00 History Hydrocodone/APAP 10 mg/325 mg 1 each PO Q6H PRN PRN 03/09/16 02/07/17 01/30/17 10:00 History [Palmer-10] Tizanidine [Zanaflex] 4 mg PO QHS 03/09/16 02/13/17 01/29/17 20:00 History Fluticasone/[place] 250/50 INH 1 puff INH RTBID #1 inhaler 08/02/16 02/07/1702/11 14:00 Rx [Advair 250/50 Diskus] Prednisone 20 mg PO BID #10 tablet 01/30/17 02/07/17 Unknown Rx Albuterol Sulfate 0.63 mg IH Q6HR 02/07/17 02/07/17 Unknown History Famotidine [Pepcid] 20 mg PO BID 02/07/17 02/07/17 Unknown History Ipratropium Harper Neb [Atrovent 0.5 mg INH RTQ6H 02/07/17 02/07/17 Unknown History Neb] Ipratropium/Albuterol Sulfate 2 puff INH Q6HR 02/07/17 02/07/17 Unknown History [Combivent Respimat Inhal [place]] Cefepime HCl/D5w 2 gm IV Q12H #1 piggyback 02/14/17 Unknown Rx [Cefepime-Dextrose 2 gm/50 ml] Vancomycin/0.9 % Sod Chloride 1.7 gm IV Q12H #1 plast..bag 02/14/17 Unknown Rx [Vanco 1.75 G/250 ml-0.9% NaCl] - History of Present Illness -Gen Adult Nature of Presenting Problems: PT IS A 61YOM PRESENTING TO THE ED C/OP FEVER AND COUGH. PT STATES HE WAS SEEN LAST WEEK FOR SAME SYMPTOMS AND NO RELIEF FROM MEDICATIONS. PT STATES SOME MINOR DIARRHEA BUT DENIES ANY N/V AT THIS TIME. PT STATES THAT HE HAS BEEN ON STERIODS NUMEROUS TIMES OVER THE PAST FEW YEARS. NO OTHER COMPLAINTS AT THIS TIME. Location of Pain/Injury: reports: generalized Pain Radiation: reports: no radiation Quality of Pain: reports: fullness Severity: reports: mild Onset/Duration: reports: 1 week ago Timing: reports: still present Context/Activities at Onset: reports: light activity Modifying Factors: improves with: nothing Associated Symptoms: reports: cough, diarrhea, fever/chills, malaise, sinus congestion/drainage, shortness of breath. denies: nausea, vomiting Similar Symptoms Previously?: Yes (1 WEEK AGO) Recently seen or treated by another doctor?: Yes (DR AGUILAR) Review of Systems - Adult - REVIEW OF SYSTEMS - ADULT Constitutional: reports: see HPI, chills, fever, fatique, night sweats Eyes: reports: no symptoms reported Ears, Nose, Mouth & Throat: reports: no symptoms reported Cardiovascular: reports: no symptoms reported Respiratory: reports: see HPI, cough, dyspnea on exertion, excessive sputum production, shortness of breath Gastrointestinal: reports: see HPI, diarrhea. denies: abdominal pain, nausea, vomiting Genitourinary: reports: no symptoms reported Musculoskeletal: reports: no symptoms reported Integumentary: reports: no symptoms reported Neurological: reports: no symptoms reported Psychiatric: reports: no symptoms reported Endocrine: reports: no symptoms reported Hematologic/Lymphatic: reports: no symptoms reported Allergic/Immunologic: reports: no symptoms reported All Other Systems: Reviewed and Negative Past History - Adult - PAST MEDICAL HISTORY-ADULT Review of Records: reports: Old Records Reviewed, Nursing Assessment Review, Medications Reviewed, Social history reviewed & non-contributory. Major Childhood Illnesses: reports: denies history Cardiovascular: reports: HTN Respiratory: reports: COPD Gastrointestinal: reports: denies history Obstetrical/Gynecological: reports: denies history Genitourinary: reports: denies history Musculoskeletal: reports: intervertebral disc disease Neurological: reports: denies history Endocrine/Immune: reports: denies history Other Conditions: reports: denies history - PRIOR SURGERIES/PROCEDURES Surgical/Procedure History: reports: orthopedic (extremity) (hand) - IMMUNIZATION STATUS Childhood Immunizations: See Nurse Assessment Flu Vaccine: See Nurse Assessment - FAMILY HISTORY Family History: reviewed, not pertinent - SOCIAL HISTORY Smoking: cigarettes, less than 1 pack/day Provider spent 3-5 mins advising pt. on dangers of tobacco.: Discussed manners to quit use, and f/u contacts for add'l counseling. Substance Use: none/never, denies Alcohol Use Frequency: never Living Situation: family Physical Exam-General - PHYSICAL EXAM-ADULT Initial Vital Signs Reviewed: Yes - CONSTITUTIONAL General Appearance: alert, mild distress. negative: appears well, no apparent distress - EYES Eyes: PERRL/EOMI, pink conjunctivae, fundi clear, no AV nicking - HEAD, EARS, NOSE, MOUTH & THROAT HENMT: normocephalic/atraumatic, moist mucous membranes, TMs normal, pharynx normal, dental decay. negative: normal ENT inspection - NECK Neck: non-tender, full range of motion, supple, normal inspection - RESPIRATORY Respiratory: chest non-tender, no pleuratic chest pain, no respiratory distress , no accessory muscle use, rhonchi, wheezing. negative: lungs clear, normal breath sounds - CARDIOVASCULAR Cardiovascular: normal peripheral pulses, no edema, no gallop, no JVD, no murmur , tachycardia. negative: regular rate, rhythm - GASTROINTESTINAL (ABDOMEN) Abdominal Exam: normal bowel sounds, non tender, soft, no organomegaly, no pulsatile mass - LYMPHATIC Lymphatic: no adenopathy - MUSCULOSKELETAL Back Exam: normal inspection, no CVA tenderness, no vertebral tenderness Extremity: normal range of motion, non-tender, normal gait, normal inspection, no pedal edema, no calf tenderness, normal capillary refill, pelvis stable - SKIN Integumentary: normal turgor, warm/dry, pallor. negative: normal color - NEUROLOGIC Neurologic: medical services assistant II-XII nml as tested, grossly normal, no motor/sensory deficits - PSYCHIATRIC Psych/Mental Status: normal mood/affect, normal thought content, normal thought process, oriented x 3 Progress - PLAN OF CARE/RESULTS Progress/Plan/Lab Results: Vital Signs - 8 hr 02/06/17 21:14 Temperature 98.1 F Pulse Rate 106 H Respiratory Rate 20 Blood Pressure 105/55 O2 Sat by Pulse Oximetry 98 Orders Category Date Time Status CHEST-2 VIEWS [RAD] Stat Exams 02/06/17 21:22 Taken Result Diagrams: 02/14/17 07:30 02/14/17 07:30 Departure - Departure Time of Disposition Decision: 02:20 DIAGNOSIS: COPD (chronic obstructive pulmonary disease), Bilateral pneumonia Disposition: ADMITTED INPATIENT 09 Certified Medical Emergency: Emergent Condition: Stable - Critical Care Note This patient required my direct personal management.: Yes Total Time (mins): 45 (DR PEREA) Critical Care Statement: This patient required my direct personal management to treat or rule out processes, the absence of which, could potentiallly result in sudden, clinically significant life or limb threatening deterioration. This chart was documented by the indicated scribe, (Madison Hightower Scribe) and accurately reflects the services I performed and decisions made by me, Linden Perea MD, as attested by the provider's signature.
--- NOTE | 2017-03-06 15:54 | DISCHARGE SUMMARY ---
ADMISSION DATE: 02/06/2017 DISCHARGE DATE: 02/14/2017 FINAL DISCHARGE DIAGNOSES: 1. Severe bilateral lobe pneumonia. 2. Severe chronic obstructive pulmonary disease. 3. Hyponatremia. 4. Constipation. 5. Chronic back pain. 6. Hypertension CONSULTATIONS REQUESTED DURING THIS HOSPITAL STAY: Pulmonary consultation with Dr. Bullock. PROCEDURES PERFORMED DURING THIS HOSPITALIZATION: Bronchoscopy. HOSPITAL COURSE: Mr. Soto is a 61-year-old male with a history of severe COPD who presented to the ER with shortness of breath. On admission, a chest x-ray was done that revealed a stable right upper lobe infiltrate with pulmonary fibrosis. The patient was admitted with a diagnosis of pneumonia and COPD and started on antibiotics and steroids and supplemental oxygen. Pulmonary was also consulted. Dr. Mcclain was also consulted for further recommendations regarding antibiotic therapy as well. The patient underwent a CT of the chest on February 08 that revealed an extensive right upper lobe pneumonia as well as mucus plugging in the left upper lobe. In light of these findings, it was decided by the weatherization director that the patient would benefit from a bronchoscopy. The bronchoscopy was performed on 02/13/2017. The patient's sputum and bronchial washings all came back negative. Slowly over the course of the hospitalization, the patient' s respiratory status improved. It was recommended by Dr. Mcclain that the patient continue on vancomycin and cefepime as outpatient for another 2 weeks. The patient was cleared for discharge home on 02/14/2017. DISCHARGE MEDICATIONS: 1. Cefepime 2 g IV every 12 hours. 2. Vancomycin 1.75 g IV every 12 hours. 3. Norvasc 2.5 mg p.o. twice a day. 4. Zanaflex 4 mg p.o. at bedtime. 5. [place] 10/325, 1 tab oral every 6 hours p.r.n. for pain. 6. Advair 250/50 mcg 1 puff inhaled twice a day. 7. Prednisone 20 mg p.o. twice a day. 8. Combivent 2 puffs inhaled every 6 hours. 9. Pepcid 20 mg p.o. twice a day. 10. Albuterol inhaler every 6 hours p.r.n. 11. Atrovent 0.5 mg inhaled every 6 hours. DISCHARGE DIET: Low-sodium diet. ACTIVITY: As tolerated. FOLLOW-UP INSTRUCTIONS: The patient will need to follow up with Dr. Mcclain in 2 weeks. The patient will need to follow up with Dr. Bullock as scheduled by his clinic. cc: Teresa Mejia MD [facility]
== END 2017-02-14 10:55 | disposition home health service (06) ==
LOC: ED 21:07 → SUATTDRO 23:54 → 3N 02-07 01:43 → SUATTDRO 02-07 01:43
PROVIDERS: ATTEND Internal Medicine

== ENCOUNTER 2019-06-03 08:44 | Inpatient (IN) ==
[2019-06-03] MEDS ORDERED: NS 1,000 ML IV ONE (09:08)
--- NOTE | 2019-06-03 09:08 | Diag Imaging Result Doc PS360 ---
EXAM: CHEST-1 VIEW 06/03/2019 HISTORY: cough TECHNIQUE: AP portable upright at 0902 COMMENT: Compared to 03/30/2019 there is increased opacity in the left base consistent with pneumonia. There continues to be coarse opacification in both upper lobes with marked pleural thickening in the apices. IMPRESSION: Left lower lobe pneumonia. Electronically signed by Sudheer Fowler 06/03/2019 9:05 AM
--- NOTE | 2019-06-03 09:11 | PROVIDER DOCUMENTATION ---
HPI-General Adult - General Chief Complaint: Shortness of Breath Stated Complaint: POSS PNEUMONIA Time Seen by Provider: 06/03/19 09:00 Source: patient Allergies/Adverse Reactions: Patient Allergies Allergy/AdvReac Type Severity Reaction Status Date / Time Penicillins Allergy Mild RASH Verified 03/30/19 10:06 clindamycin Allergy RASH Verified 03/30/19 10:06 Home Medications: Home Medication List Medication Instructions Recorded Confirmed Last Taken Type Amlodipine Besylate [Norvasc] 10 mg PO QAM 01/07/13 06/03/19 01/30/17 07:00 History Hydrocodone/APAP 10 mg/325 mg 1 each PO Q6-8H PRN PRN 03/09/16 06/03/19 01/30/17 10:00 History [[place]-10] Fluticasone/[place] 250/50 INH 1 puff INH RTBID #1 inhaler 08/02/16 02/07/17 01/29/17 14:00 Rx [Advair 250/50 Diskus] Albuterol Sulfate 0.63 mg IH Q6HR 02/07/17 06/03/19 Unknown History Famotidine [Pepcid] 20 mg PO BID 02/07/17 06/03/19 Unknown History Ipratropium [place] Neb [Atrovent 0.5 mg INH RTQ6H 02/07/17 06/03/19 Unknown History Neb] Ipratropium/Albuterol Sulfate 2 puff INH Q6HR 02/07/17 06/03/19 Unknown History [Combivent Respimat 20-100 Mcg] - History of Present Illness -Gen Adult Nature of Presenting Problems: Pt. is 64 yom that presents with c/o SOB and fever for two days. He states he does not smoke and reports a cough. He denies any other complaints. Location of Pain/Injury: reports: none. denies: head, face, mouth, neck, chest, upper extremity, hand(s), abdomen, back, pelvis, genitalia, lower extremity, feet, upper body, lower body, generalized, other Pain Radiation: reports: no radiation. denies: arm(s), back, buttocks, chest, epigastric, feet, groin, jaw, flank (L), legs (lower), LLQ, LUQ, neck, periumbilical, flank (R), RLQ, RUQ, shoulder(s), scapula, scrotal, sternal notch, suprapubic, legs (upper), urethral, vaginal, other Quality of Pain: reports: none. denies: aching, pressure, tightness Severity: reports: moderate. denies: mild, severe Onset/Duration: reports: gradual, 2 days ago Timing: reports: still present. denies: improving, intermittent, getting worse Context/Activities at Onset: reports: none. denies: light activity, moderate activity, vigorous activity, recent emotional stress, recent physical stress, recent trauma history, possible bad food, cold exposure, eating, out of country travel, rest, sleep, sexual activity, other Modifying Factors: improves with: nothing Associated Symptoms: reports: cough, fever/chills, shortness of breath. denies: denies symptoms, anxiety, arm pain, back/neck pain, chest pain, constipation, diaphoresis, diarrhea, dizziness, EENT symptoms, fatigue, genitourinary problems, headaches, heartburn, joint pain, loss of appetite, malaise, muscle aches, sinus congestion/drainage, nausea, rash, seizure, sensory/motor loss, pain with inspiration, swelling/mass in abdomen, syncope, vomiting, weakness, trouble walking, other Similar Symptoms Previously?: Yes Recently seen or treated by another doctor?: No Review of Systems - Adult - REVIEW OF SYSTEMS - ADULT Constitutional: reports: no symptoms reported Eyes: reports: no symptoms reported Ears, Nose, Mouth & Throat: reports: no symptoms reported Cardiovascular: reports: no symptoms reported Respiratory: reports: cough, shortness of breath. denies: dyspnea on exertion, hemoptysis, wheezing Gastrointestinal: reports: no symptoms reported Genitourinary: reports: no symptoms reported Musculoskeletal: reports: no symptoms reported Integumentary: reports: no symptoms reported Neurological: reports: no symptoms reported Psychiatric: reports: no symptoms reported Past History - Adult - PAST MEDICAL HISTORY-ADULT Review of Records: reports: Old Records Reviewed, Nursing Assessment Review, Medications Reviewed, Social history reviewed & non-contributory. Major Childhood Illnesses: reports: denies history Cardiovascular: reports: HTN Respiratory: reports: COPD Gastrointestinal: reports: GERD Obstetrical/Gynecological: reports: denies history Genitourinary: reports: denies history Musculoskeletal: reports: intervertebral disc disease Neurological: reports: denies history Psychiatric: reports: denies history Endocrine/Immune: reports: denies history Other Conditions: reports: denies history - PRIOR SURGERIES/PROCEDURES Surgical/Procedure History: reports: orthopedic (extremity) (hand) - IMMUNIZATION STATUS Childhood Immunizations: See Nurse Assessment Flu Vaccine: See Nurse Assessment - FAMILY HISTORY Family History: reviewed, not pertinent - SOCIAL HISTORY Smoking: quit greater than 1 year Physical Exam-General - PHYSICAL EXAM-ADULT Initial Vital Signs Reviewed: Yes - CONSTITUTIONAL General Appearance: alert, mild distress, thin. negative: anxious, slow to respond, combative - EYES Eyes: PERRL/EOMI, pink conjunctivae - HEAD, EARS, NOSE, MOUTH & THROAT HENMT: normocephalic/atraumatic, moist mucous membranes - NECK Neck: non-tender, full range of motion, supple, normal inspection - RESPIRATORY Respiratory: pleural rub (Left side), increased rate. negative: retractions, splinting - CARDIOVASCULAR Cardiovascular: normal peripheral pulses, regular rate, rhythm, no edema - GASTROINTESTINAL (ABDOMEN) Abdominal Exam: normal bowel sounds, non tender, soft - LYMPHATIC Lymphatic: no adenopathy. negative: axilla node tender, cervical node tende rness - MUSCULOSKELETAL Back Exam: normal inspection, no CVA tenderness, no vertebral tenderness Extremity: normal range of motion, non-tender, normal gait, normal inspection Peripheral Pulses: radial (R): 2+, radial (L): 2+ - SKIN Integumentary: normal color, normal turgor, warm/dry - NEUROLOGIC Neurologic: grossly normal, no motor/sensory deficits - PSYCHIATRIC Psych/Mental Status: normal mood/affect, normal thought content, normal thought process, oriented x 3 Progress - PLAN OF CARE/RESULTS Progress/Plan/Lab Results: Vital Signs - 8 hr 06/03/19 08:46 Temperature 98.0 F Pulse Rate 91 H Respiratory Rate 23 Blood Pressure 132/81 O2 Sat by Pulse Oximetry 92 L Orders Category Date Time Status Cardiac Monitoring DIRECTED Care 06/03/19 08:51 Active IV Insertion ORDERED Care 06/03/19 08:51 Active Notify MD of + Sepsis Screen NOW Care 06/03/19 08:51 Active Notify Physician As Ordered Care 06/03/19 08:51 Active CHEST-1 VIEW [RAD] Stat Exams 06/03/19 08:51 Completed BLOOD CULTURE [BLDCUL] Stat Lab 06/03/19 08:51 Uncollected CBC WITH DIFF [HEME] Stat Lab 06/03/19 08:51 Uncollected CK PROFILE [SP CHEM] Stat Lab 06/03/19 08:51 Uncollected COMPREHENSIVE METABOLIC PANEL [CHEM] Stat Lab 06/03/19 08:51 Uncollected LACTATE, PLASMA [CHEM] Lab 06/03/19 09:00 Uncollected LACTATE, PLASMA [CHEM] Lab 06/03/19 12:00 Uncollected LACTATE, PLASMA [CHEM] Lab 06/03/19 15:00 Uncollected PRO B-NATRIURETIC PEPTIDE Stat Lab 06/03/19 09:08 Ordered PROTIME WITH INR [COAG] Stat Lab 06/03/19 08:51 Uncollected PTT [COAG] Stat Lab 06/03/19 08:51 Uncollected TROPONIN T Stat Lab 06/03/19 08:51 Uncollected URINALYSIS W/POSS RFLX CULT [URINALYSIS] Stat Lab 06/03/19 08:51 Uncollected 0.9% Sodium Chloride Inj [Ns] 1,000 ml Med 06/03/19 09:08 Active IV 999 mls/hr Oxygen Device Stat Oth 06/03/19 08:51 Active EKG [EKG] Stat Ther 06/03/19 09:09 Ordered Laboratory Tests 06/03/19 06/03/19 06/03/19 09:46 09:55 10:07 WBC 32.78 H RBC 3.83 L Hgb 10.9 L Hct 33.0 L MCV 86.2 MCH 28.5 MCHC 33.0 RDW Std Deviation 16.4 H Plt Count 357 MPV 9.1 Immature Gran % (Auto) 0.8 H Neut % (Auto) 88.8 H Lymph % (Auto) 4.1 L [place] % (Auto) 4.1 Eos % (Auto) 2.0 Baso % (Auto) 0.2 Immature Gran # (Auto) 0.27 H Neut # (Auto) 29.11 H Lymph # (Auto) 1.36 [place] # (Auto) 1.35 H Eos # (Auto) 0.64 Baso # (Auto) 0.05 PT INR PTT (Actin FS) Sodium Potassium Chloride Carbon Dioxide Anion Gap BUN Creatinine Estimated GFR/1.73 m2 BUN/Creatinine Ratio Glucose Calculated Osmolality Calcium Total Bilirubin AST ALT Alkaline Phosphatase Creatine Kinase Troponin T Total Protein Albumin Globulin Albumin/Globulin Ratio Plasma Lactate 1.7 Urine Source CLEAN CATCH Urine Color YELLOW Urine Turbidity CLEAR Urine pH 6.0 Ur Specific [place] 1.009 Urine Protein TRACE A Ur Glucose (Stick) NEGATIVE Ur Ketones (Stick) NEGATIVE Urine Blood TRACE A Urine Nitrite NEGATIVE Urine Bilirubin NEGATIVE Urobilinogen Dipstick NORMAL Urine Leukocytes SMALL A Urine WBC (Auto) <10 Urine RBC (Auto) <10 U Epithel Cells (Auto) <10 Urine Bacteria (Auto) NEGATIVE 06/03/19 06/03/19 06/03/19 10:07 10:07 10:07 WBC RBC Hgb Hct MCV MCH MCHC RDW Std Deviation Plt Count MPV Immature Gran % (Auto) Neut % (Auto) Lymph % (Auto) [place] % (Auto) Eos % (Auto) Baso % (Auto) Immature Gran # (Auto) Neut # (Auto) Lymph # (Auto) [place] # (Auto) Eos # (Auto) Baso # (Auto) PT 16.9 H INR 1.35 PTT (Actin FS) 42.9 H Sodium 130 L Potassium 3.3 L Chloride 90 L Carbon Dioxide 24 L Anion Gap 16 BUN 11 Creatinine 0.7 Estimated GFR/1.73 m2 > 60 BUN/Creatinine Ratio 16 Glucose 70 Calculated Osmolality 259 Calcium 8.5 L Total Bilirubin 0.87 AST 10 ALT 5 L Alkaline Phosphatase 61 Creatine Kinase 64 Troponin T < 0.010 Total Protein 6.6 Albumin 3.5 Globulin 3.1 Albumin/Globulin Ratio 1.1 Plasma Lactate Urine Source Urine Color Urine Turbidity Urine pH Ur Specific [place] Urine Protein Ur Glucose (Stick) Ur Ketones (Stick) Urine Blood Urine Nitrite Urine Bilirubin Urobilinogen Dipstick Urine Leukocytes Urine WBC (Auto) Urine RBC (Auto) U Epithel Cells (Auto) Urine Bacteria (Auto) Discussed results and plan of care with patient. Patient agrees with plan and verbalizes understanding. Result Diagrams: 06/03/19 10:07 06/03/19 10:07 - EKG 1 Time of EKG reading by physician:: 09:10 EKG Read and Signed by:: Rob Lucio EKG Interpretation (*Must complete 3 of following elements*): Abnormal Rate: 90 Rhythm: Sinus rhythm with PVC's QRS: RBB, PVC's - XRAY 1 XRAY Study: Chest ([facility] - [address] [facility], [address], [place] [address] [facility] - [address] [place] [address] Department of Imaging Patient: MAKSIM CUNNINGHAM Date: 06/03/19#: [id number] : 3ADM Status: PRE ERAcct#: [id number] Age/Sex: 64/MRoom/Bed: Loc: ED Ordering Physician: Rob Lucio MD Family Physician: Carlos A Edmondson MD Reason for Procedure: cough ___ Signed EXAM: CHEST-1 VIEW 06/03/2019 HISTORY: cough TECHNIQUE: AP portable upright at 0902 COMMENT: Compared to 03/30/2019 there is increased opacity in the left base consistent with pneumonia. There continues to be coarse opacification in both upper lobes with marked pleural thickening in the a pices. IMPRESSION: Left lower lobe pneumonia. Electronically signed by Sudheer Fowler 06/03/2019 9:05 AM 06/03/19 0905 Interpreting Physician: Sudheer Fowler MD Dictated Date/Time: 06/03/19 0904 cc: Rob Lucio MD; Carlos A Edmondson MD) XRAY Interpretation: See note - CONSULTS/PCP/HOSPITALIST Notification #1 *Consult/PCP/Hospitalist*: Che Live Time Discussed: 11:16 Reason/Comments: Admission Consult Disposition: Will see in ED, Admit Departure - Departure Date of Disposition Decision: 06/03/19 Time of Disposition Decision: 11:13 DIAGNOSIS: Cough Pneumonia Qualifiers: Pneumonia type: due to unspecified organism Laterality: left Lung location: lower lobe of lung Qualified Code(s): J18.1 - Lobar pneumonia, unspecified organism COPD (chronic obstructive pulmonary disease) Qualifiers: COPD type: unspecified COPD Qualified Code(s): J44.9 - Chronic obstructive pulmonary disease, unspecified Disposition: ADMITTED INPATIENT 09 Certified Medical Emergency: Emergent Condition: Stable Additional Freetext Instructions: ED Follow Up Instructions: You have been treated by a care provider in the Emergency Department. These instructions are being provided to you so you can have an understanding of how to care for yourself upon discharge. Upon discharge from the Emergency Department, you are responsible for making arrangements for follow-up care by a physician of your choice. Take all prescribed medications as directed. Return to the Emergency Department immediately for any new or worsening symptoms. You may call the Physician Referral phone number at [phone] to obtain a list of Physicians who are taking new patients. Referrals and Follow-Ups: Carlos A Edmondson MD [Primary Care Provider] - - Critical Care Note This patient required my direct & personal management of CC.: Yes Total Time (mins): 35 Critical Care Statement: This patient required my direct personal management to treat or rule out processes, the absence of which, could potentiallly result in sudden, clinically significant life or limb threatening deterioration. Attestation - Physician/ FREDERICK Attestation Patient care was provided by Advanced Practice Provider:: Yes Advanced Practice Provider:: Josefina Portillo Advanced Practice Provider documentation review:: The Mid-level provider documentation, treatment plan and medical decision making was reviewed by the physician who agrees with all treatment and medical decision making by the MLP. The physician spent face to face time with patient:: No Advanced Practice Provider documentation review:: Supervising physician onsite and consulted in the evaluation and care of this patient. The physician did not have a face to face encounter with the patient.
--- NOTE | 2019-06-03 09:19 | EKG Report ---
Test Performed on : 06/03/2019 09:04:45 AM Test Reason : SOB Blood Pressure : / mmHG Vent. Rate : 090 BPM Atrial Rate : 090 BPM P-R Int : 122 ms QRS Dur : 134 ms QT Int : 384 ms P-R-T Axes : 082 075 067 degrees QTc Int : 469 ms Sinus rhythm. with premature supraventricular complexes. Right bundle branch block Abnormal ECG When compared with ECG of 30-MAR-2019 11:46, premature supraventricular complexes. are now present Unconfirmed Result
[2019-06-03] MEDS ORDERED: ZITHROMAX 500 MG/NS 500 MG/250 ML IVPB IV ONE (09:22)
[2019-06-03 10:09] LABS: URINE SOURCE CLEAN CATCH
[2019-06-03 10:12] LABS: BILIRUBIN URINE NEGATIVE (NEGATIVE); BLOOD URINE TRACE (NEGATIVE); COLOR YELLOW; GLUCOSE URINE NEGATIVE (NEGATIVE); KETONE URINE NEGATIVE (NEGATIVE); LEUKOCYTES URINE SMALL (NEGATIVE); NITRITE URINE NEGATIVE (NEGATIVE); PROTEIN URINE TRACE mg/dL (NEGATIVE); SP GRAVITY URINE 1.009; TURBIDITY URINE CLEAR (CLEAR); UR EPITHELIAL CELLS <10 /HPF (<10); URINE BACTERIA NEGATIVE /HPF; URINE RBC <10 /HPF (<10); URINE WBC <10 /HPF (<10); UROBILINOGEN URINE NORMAL (NORMAL)
[2019-06-03 10:23] LABS: INR 1.35; PROTIME 16.9 Seconds (11.0-16.0)
[2019-06-03 10:24] LABS: PTT 42.9 Seconds (22.3-41.8)
[2019-06-03 10:56] LABS: BASO# 0.05 X1000 (0.0-0.2); BASO% 0.2 % (0.0-0.8); EOS# 0.64 X1000 (0.0-0.7); HEMOGLOBIN 10.9 g/dL (14.0-18.0); IMM GRAN# 0.27 X1000 (0.0-0.04); IMM GRAN% 0.8 % (0.0-0.5); LYMPH# 1.36 X1000 (1.2-3.4); LYMPH% 4.1 % (20.5-51.1); MCH 28.5 PG (27-31); MCV 86.2 FL (81-99); MONO# 1.35 X1000 (0.11-0.59); MONO% 4.1 % (1.7-9.3); MPV 9.1 FL (7.4-10.4); NEUT# 29.11 X1000 (1.4-6.5); NEUT% 88.8 % (42.2-75.2); PLT 357 X1000 (130-400); RBC 3.83 XMIL (4.7-6.1); RDW 16.4 % (11.5-14.5); WBC 32.78 X1000 (4.8-10.8)
[2019-06-03 11:03] LABS: AGAP 16; ALB/GLOB RATIO 1.1; ALBUMIN 3.5 g/dL (3.5-5.0); ALKALINE PHOSPHATASE 61 U/L (32-122); BUN 11 mg/dL (8-22); CALCIUM 8.5 mg/dL (8.8-10.2); CHLORIDE 90 mmol/L (98-107); CK PROFILE 64 U/L (24-204); COSMO 259; CREATININE 0.7 mg/dL (0.7-1.2); ESTIMATED GFR > 60; GLUCOSE 70 mg/dL (70-104); GOT 10 U/L (10-34); GPT 5 U/L (10-44); POTASSIUM 3.3 mmol/L (3.5-5.1); SODIUM 130 mmol/L (136-145); TCO2 24 mmol/L (25-35); TOTAL BILIRUBIN 0.87 mg/dL (0.20-1.00); TOTAL PROTEIN 6.6 g/dL (6.3-8.3)
[2019-06-03] MEDS ORDERED: DUONEB (A & A) INH PRN (11:26)
[2019-06-03] MEDS ORDERED: VANCOMYCIN IV PER PHARMACY MISC SCH (11:30)
[2019-06-03] MEDS: DUONEB (A & A) INH SCH ×4 (11:46→23:26)
[2019-06-03] MEDS ORDERED: ROBITUSSIN-AC PO PRN (11:50)
[2019-06-03 12:03] LABS: BANDS 8 % (0-1); EOS 2 % (1-10); LYMPHS 4 % (21-51); MONO 6 % (1-9); SEGS 80 % (42-75)
[2019-06-03 12:05] LABS: HYPOCHROM 1+
[2019-06-03 12:09] LABS: LARGE PLATELETS 1+
[2019-06-03] MEDS ORDERED: SOLU-MEDROL IV SCH ×2 (13:00→17:45)
[2019-06-03] MEDS: MAXIPIME 2 GM in NS 100 ML IV SCH (13:09)
[2019-06-03] MEDS ORDERED: VANCOMYCIN 2 GM in NS 500 ML IV ONE (15:00)
[2019-06-03] MEDS: NORCO-10 PO PRN (17:56)
--- NOTE | 2019-06-03 19:31 | Diag Imaging Result Doc PS360 ---
EXAM: CT THORAX W/CONTRAST HISTORY: pneumonia TECHNIQUE: CT chest with intravenous contrast COMPARISON: 02/08/2017 FINDINGS: Trace left pleural fluid. No right effusion. No cardiomegaly. No thoracic aortic aneurysm or dissection. Severe emphysema. There are small bilateral upper lobe apical cavities filled with debris as well as upper lobe bronchiectasis. Dense left lower lobe infiltrates with multiple small cavities. IMPRESSION: Left lower lobe pneumonia. Severe emphysema and prominent apical scarring with small cavities and bronchiectasis. This exam was performed using automated exposure control, adjustment of mA or kV according to patient size, and/or use of iterative reconstruction technique. Electronically signed by Jose Block 06/03/2019 7:29 PM
--- NOTE | 2019-06-03 19:34 | HISTORY AND PHYSICAL ---
ADDENDUM: SUBJECTIVE: He came in with cough and shortness of breath. He has a history of pulmonary fibrosis, COPD. He has been seen by Dr. Bullock in the past. He is here with a new diagnosis of pneumonia, and he was admitted for treatment. The problem is he has had persistent pneumonia which has never completely resolved. There may be atypical features here. OBJECTIVE: On exam, he has rales. No wheezing. Breathing is fairly comfortable. ASSESSMENT AND PLAN: We are going to admit him for pneumonia, atypical, and continue breathing treatments and see how he does. We have consulted Dr. Bullock. We will pursue a CT. He has a white count of 32,000. I am not sure how much of that is related to other issues concurrently. He has been placed on cefepime and vancomycin, and we will continue that and follow. cc: Jose Carlos Live MD
--- NOTE | 2019-06-03 19:36 | HISTORY AND PHYSICAL ---
CHIEF COMPLAINT: Shortness of breath. HISTORY OF PRESENT ILLNESS: This is a 64-year-old gentleman with a history of COPD, chronic back pain, and hypertension. He presents to the emergency room complaining of shortness of breath and fever for 2 days. He reports a temperature between 102.8 and 103 degrees at home. He does state that he has been taking 600 of Motrin every 8 hours for these. He denied any sick contacts, any chest pain or palpitations. Chest x-ray revealed left lower lobe pneumonia. Blood cultures were obtained. He was given azithromycin and is being admitted by the ER physician for further evaluation and treatment. PAST MEDICAL HISTORY: 1. COPD. 2. Chronic back pain. 3. Hypertension. 4. Pulmonary fibrosis. 5. Pneumonia in January 2017, with bilateral cavitary lesions. PAST SURGICAL HISTORY: Hand surgery. SOCIAL HISTORY: He states that he smoked up until 2 years ago. He drank alcohol until 2 years ago. He denies any illicit drug use. ALLERGIES: Penicillin and clindamycin, which cause rash and shortness of breath. HOME MEDICATIONS: A list will be obtained by the nursing staff, and once verified, will review and restart as appropriate. REVIEW OF SYSTEMS: Discussed with patient with pertinent positives stated in the HPI. He denied any syncope or dizziness, any chest pain or palpitations, any nausea, vomiting, diarrhea, constipation, black or bloody vomitus or stools, any hematuria, dysuria, frequency, urgency. PHYSICAL EXAMINATION: GENERAL: This is a 64-year-old gentleman, who is sitting up in the bed in the emergency room in no distress. VITAL SIGNS: Blood pressure is 114/66, with a heart rate of 97, respirations are 18, temperature is 98.4 degrees, with O2 saturations 94% to 97%. EYES: Pupils are equal, round, react to light. EOMs are intact. Sclerae anicteric. HEENT: Head is normocephalic, atraumatic. Mucous membranes are moist. NECK: Supple with trachea midline. CARDIOVASCULAR: Regular rate and rhythm. S1 and S2 appreciated. He has no lower extremity edema. Calves are nontender bilaterally with peripheral pulses palpable x4 extremities. PULMONARY: He does have a rub on the left. Chest rises and falls symmetric to respiration. Chest wall is nontender to palpation. He does have some scattered expiratory wheezes throughout both lung arellano. GASTROINTESTINAL: Abdomen is soft, nontender, nondistended, with bowel sounds in all 4 quadrants. GENITOURINARY: He has no CVA or suprapubic tenderness. NEUROLOGIC: He is alert and oriented x3. SKIN: Warm and dry. LABORATORY AND DIAGNOSTIC DATA: WBC is 32.78, with hemoglobin 10.9, hematocrit 33, and platelets 357,000. Sodium 130, potassium 3.3, BUN 11, creatinine 0.7, with a glucose of 70. Urinalysis is essentially negative. Blood cultures, urine cultures, sputum culture are pending. Chest x-ray reveals left lower lobe pneumonia. ASSESSMENT: 1. Left lower lobe pneumonia. 2. Fever. 3. Cough. 4. Chronic obstructive pulmonary disease. 5. Hypertension. 6. Chronic constipation. 7. Chronic back pain. 8. Hyponatremia. PLAN: The patient will be admitted to the hospital. He will be placed on telemetry. We will give oxygen as needed. He will be given DuoNeb q.4 hours with q.2 hours p.r.n. We will get a CT of his chest. We will consult Pulmonology. For antibiotic coverage, will use vancomycin and cefepime. Steroids to taper. Give Robitussin AC for cough. For DVT prophylaxis, will use Lovenox, and for GI prophylaxis, Prilosec. Plan was discussed with Dr. Live. Further treatments pending hospital course. Dictated by ELVIN Gutierrez for Jose Carlos Live MD cc: ELVIN Gutierrez MD
--- NOTE | 2019-06-03 21:00 | CONSULTATION ---
DATE OF CONSULTATION: 06/03/2019 REQUESTING PROVIDER: ELVIN Gutierrez REASON FOR CONSULTATION: Pneumonia, history of cavitary pneumonia, COPD. HISTORY OF PRESENT ILLNESS: This is a 64-year-old male with a medical history of severe COPD with pulmonary fibrosis, hypertension, gastroesophageal reflux disease, and chronic back pain. He presented to the ER this morning with shortness of breath and fever for 2 days. Initial workup in the ER revealed left lower lobe pneumonia. He has been admitted for further evaluation and management. The patient currently is still waiting in the ER. He is lying in bed and ready to eat his lunch. He reports chronic productive cough with some yellow or greenish sputum, acute left chest pain which is worsened by coughing, recently several episodes of diarrhea, fever up to 102 degree, and chills. He reports no palpitation, nausea, vomiting, pedal edema, noticeable weight change or wheezing. He reports he usually has constipation. PAST MEDICAL AND SURGICAL HISTORY: 1. COPD, severe, emphysemous type, on home oxygen in 2017. He has been prescribed with Advair, Atrovent, and Combivent. But, the patient reports he only use DuoNeb at home 4 to 6 times a day. He is not using any other inhaler. 2. Pulmonary fibrosis. 3. Hypertension. 4. Gastroesophageal reflux disease. 5. Chronic back pain on narcotic at home. 6. History of severe bilateral pneumonia with cavity lesions in January 2017, bronchoscopy done on 02/13/[address] Bullock. He also had recurrent pneumonia between 2014 to 2016. 7. Status post hand surgery following trauma. SOCIAL HISTORY: The patient lives at home with his . He has 2 cats as pets inside the house for 10 years and 4-5 years. He used to smoke and quit 4 years ago. He used to drink and quit drinking 4 years ago too. He reports no history of illicit drug use. FAMILY HISTORY: Father had pulmonary emboli; mother had congestive heart failure. ALLERGIES: Penicillins, clindamycin. REVIEW OF SYSTEMS: A 10-point review of systems was conducted and the pertinent is listed within the HPI, otherwise noncontributory. PHYSICAL EXAMINATION: Vital Signs: Temperature, blood pressure 128/101, pulse 98, respiratory rate 20, oxygen saturation 96% on nasal cannula at 2 L. General: Present, cooperative, chronically ill-appearing, lying in bed with no acute distress. HEENT: Atraumatic, normocephalic. Trachea midline. Mucosa pink and moist. Respiratory: Barrel-shaped chest. Respiration even and unable. Symmetrical excursion. Auscultation revealed diminished breathing sounds bibasilarly. Otherwise clear. Cardiovascular: Regular rate and rhythm with distant heart sounds. Gastrointestinal: Soft, nontender, nondistended. Normoactive bowel sounds in all 4 quadrants. Extremities: No pedal edema. No cyanosis. No clubbing. Dorsalis pedis 1+ bilaterally. Neurologic: Alert and oriented x3. Speech fluent. Follows commands. LAB DATA: White blood cell 32.78, hemoglobin 10.9, hematocrit 33.0, platelet 357,000. Sodium 140, potassium 3.3, chloride 90, carbon dioxide 24, BUN 11, creatinine 0.7, glucose 70. ProBNP 1511. IMAGING DATA: Chest x-ray revealed left lower lobe pneumonia and stable coarse opacification in both upper lobes with marked pleural thickening in the apices. ASSESSMENT: This is a 64-year-old male with a medical history of chronic obstructive pulmonary disease, hypertension, gastroesophageal reflux disease, chronic back pain, and history of severe bilateral pneumonia with cavitary lesions. He has been admitted with left lower lobe pneumonia. 1. Left lower lobe pneumonia. 2. Chronic obstructive pulmonary disease. No exacerbation at this time. PLAN: 1. Continue supplemental oxygen. 2. Continue antibiotic and bronchodilators. 3. Follow up with CBC and BMP. Check ABG if indicated. Follow up with blood culture, sputum culture and urine culture. Follow up with Chest CT. 4. Educate patient on the importance of maintenance inhaler and recommend patient to resume Advair and use DuoNeb as needed. 5. Continue GI and DVT prophylaxis. 6. Further recommendations pending hospital course. Thank you for the courtesy of this consult. Dictated by ELVIN Mosley for Stefania Bullock MD cc: ELVIN Mosley MD [facility]
[2019-06-03] MEDS: PEPCID PO SCH (21:10)
[2019-06-04] MEDS ORDERED: SOLU-MEDROL IV SCH (01:00)
[2019-06-04] MEDS: MAXIPIME 2 GM in NS 100 ML IV SCH ×2 (01:19→13:22)
[2019-06-04] MEDS ORDERED: KLOR-CON PO ONE (01:34)
[2019-06-04] MEDS ORDERED: ZOFRAN IV PRN (02:18)
[2019-06-04] MEDS: NORCO-10 PO PRN ×3 (02:37→18:40)
[2019-06-04] MEDS: DUONEB (A & A) INH SCH ×6 (03:21→23:51)
[2019-06-04] MEDS: PRILOSEC PO SCH (06:16)
[2019-06-04 08:30] LABS: BASO# 0.01 X1000 (0.0-0.2); EOS# 0.01 X1000 (0.0-0.7); HEMOGLOBIN 10.5 g/dL (14.0-18.0); IMM GRAN% 0.3 % (0.0-0.5); LYMPH# 0.86 X1000 (1.2-3.4); LYMPH% 2.9 % (20.5-51.1); MCH 28.3 PG (27-31); MCHC 32.8 g/dL (33-37); MCV 86.3 FL (81-99); MONO# 0.64 X1000 (0.11-0.59); MONO% 2.1 % (1.7-9.3); MPV 9.9 FL (7.4-10.4); NEUT# 28.23 X1000 (1.4-6.5); NEUT% 94.7 % (42.2-75.2); PLT 350 X1000 (130-400); RBC 3.71 XMIL (4.7-6.1); RDW 16.8 % (11.5-14.5); WBC 29.85 X1000 (4.8-10.8)
[2019-06-04 08:56] LABS: AGAP 12; BUN 11 mg/dL (8-22); CALCIUM 8.6 mg/dL (8.8-10.2); CHLORIDE 100 mmol/L (98-107); COSMO 273; CREATININE 0.6 mg/dL (0.7-1.2); ESTIMATED GFR > 60; GLUCOSE 121 mg/dL (70-104); POTASSIUM 2.8 mmol/L (3.5-5.1); SODIUM 136 mmol/L (136-145); TCO2 24 mmol/L (25-35)
[2019-06-04] MEDS: VANCOMYCIN 1,600 MG in NS 250 ML IV SCH (09:41)
[2019-06-04] MEDS: PEPCID PO SCH ×2 (09:42→21:01)
[2019-06-04] MEDS: NORVASC PO SCH (09:42)
[2019-06-04] MEDS: LOVENOX SUBQ SCH (09:42)
[2019-06-04 10:07] LABS: ALLEN TEST YES; BE 0.7 mmoll (-3.0-3.0); BLOOD TYPE ARTERIAL; HCO3-(ACT) 25.4 mmoll (20.0-26.0); METHB 1.1 % (0.0-1.5); MODALITY CANNULA; O2(CT) 13.9 mL/dL (15.0-23.0); O2HB 92.5 % (95.0-99.0); PCO2(98.6) 34 mmHg (35-45); PO2(98.6) 60 mmHg (60-100); SAMPLE BLOOD; SAO2 95.3 % (95.0-100.0); THB 10.7 g/dL (11.5-17.4); pH(98.6) 7.46 (7.35-7.45)
--- NOTE | 2019-06-04 12:41 | EKG Report ---
Test Performed on : 06/04/2019 12:35:01 PM Test Reason : Elevated Heart rate Blood Pressure : / mmHG Vent. Rate : 124 BPM Atrial Rate : 124 BPM P-R Int : 128 ms QRS Dur : 136 ms QT Int : 348 ms P-R-T Axes : 000 077 053 degrees QTc Int : 499 ms Sinus tachycardia. with occasional premature ventricular complexes. Right bundle branch block Abnormal ECG When compared with ECG of 03-JUN-2019 09:04, (Unconfirmed) premature ventricular complexes. are now present premature supraventricular complexes. are no longer present Confirmed by Russell Childress MD ([id number]) on 06/07/2019 9:31:58 PM
[2019-06-04] MEDS: KLOR-CON PO SCH ×2 (13:21→21:01)
--- NOTE | 2019-06-04 16:56 | PROGRESS NOTE ---
DATE: 06/04/2019 SUBJECTIVE: This patient is still complaining of shortness of breath. He is still on nasal cannula. As per the patient, he used to be on oxygen at home a long time ago but not anymore, but now he is on 3 L here. He has been tachycardic on and off. CT scan of the chest showed left lower lobe pneumonia, severe emphysema, and prominent apical scarring with small cavities and bronchiectasis. He is wheezing a little bit, but is not that bad. We will continue with antibiotics, steroids, breathing treatment and oxygen supplementation. OBJECTIVE: Vital Signs: Temperature 98.1 degrees, pulse 99, respiratory rate 20, blood pressure 107/61, oxygen saturation 96 on 3 L of nasal cannula. HEENT: Head normocephalic, no trauma. PERRLA. Neck: Supple. No JVD. No masses. Central trachea. Chest: Decreased breath sounds globally with prolonged expiratory phase and end-expiratory wheezing, faint, left rhonchi and crepitus mostly at the bases as well. Abdomen: Soft, nontender, nondistended. No hepatosplenomegaly. Extremities: No edema, no clubbing, no cyanosis. Neurological examination: The patient is alert and oriented x3. No focal deficits. LABORATORY: WBC 29.8, hemoglobin 10.5, hematocrit 32, platelets 350. Sodium 136, potassium 2.8, chloride 100, bicarbonate 24. BUN 11, creatinine 0.6, glucose 121, calcium 8.6, magnesium 1.7. ASSESSMENT AND PLAN: 1. Chronic obstructive pulmonary disease with mild exacerbation likely due to left lower lobe pneumonia. Continue breathing treatment, oxygen supplementation, antibiotics, pulmonary toilet. Pulmonary Department following this patient closely. 2. Acute hypoxemic respiratory failure likely due to chronic obstructive pulmonary disease and pneumonia. Aware. Continue with oxygen supplementation. As per the patient, she used to be on oxygen long time ago at home, but not anymore. 3. Left lower lobe pneumonia. Continue with antibiotics. 4. Hypertension. Continue with same management. Stable. 5. Chronic constipation. Aware. 6. Hyponatremia, resolved. 7. Hypokalemia. I will replace the potassium. 8. Normocytic anemia. Aware. 9. Leukocytosis. His white blood cell decreased from 32.7 to 29.8. This patient has been having chronic issues with elevated white blood cell count since 2014, but at this time seems to be higher than that. Probably he will benefit from an outpatient Hematology/Oncology evaluation. 10. Chronic back pain. Continue with [place] as needed. 11. Deep vein thrombosis prophylaxis. Continue with Lovenox. cc: Pavan Doe MD
[2019-06-05] MEDS: MAXIPIME 2 GM in NS 100 ML IV SCH ×2 (01:37→12:09)
[2019-06-05] MEDS: NORCO-10 PO PRN ×3 (01:46→18:16)
[2019-06-05] MEDS: VANCOMYCIN 1,600 MG in NS 250 ML IV SCH (03:56)
[2019-06-05] MEDS: DUONEB (A & A) INH SCH ×6 (04:18→22:45)
[2019-06-05] MEDS: PRILOSEC PO SCH (06:07)
[2019-06-05 08:15] LABS: BASO# 0.02 X1000 (0.0-0.2); BASO% 0.1 % (0.0-0.8); EOS# 0.08 X1000 (0.0-0.7); EOS% 0.3 % (0.0-10.0); HEMATOCRIT 32.1 % (42.0-52.0); HEMOGLOBIN 10.5 g/dL (14.0-18.0); IMM GRAN# 0.09 X1000 (0.0-0.04); IMM GRAN% 0.3 % (0.0-0.5); LYMPH# 1.44 X1000 (1.2-3.4); LYMPH% 4.9 % (20.5-51.1); MCH 28.2 PG (27-31); MCHC 32.7 g/dL (33-37); MCV 86.1 FL (81-99); MONO# 0.93 X1000 (0.11-0.59); MONO% 3.1 % (1.7-9.3); MPV 9.7 FL (7.4-10.4); NEUT% 91.3 % (42.2-75.2); PLT 362 X1000 (130-400); RBC 3.73 XMIL (4.7-6.1); WBC 29.66 X1000 (4.8-10.8)
[2019-06-05 08:45] LABS: AGAP 12; BUN 13 mg/dL (8-22); CHLORIDE 100 mmol/L (98-107); COSMO 271; CREATININE 0.6 mg/dL (0.7-1.2); GLUCOSE 85 mg/dL (70-104); POTASSIUM 3.8 mmol/L (3.5-5.1); SODIUM 136 mmol/L (136-145); TCO2 24 mmol/L (25-35)
[2019-06-05 08:46] LABS: ESTIMATED GFR > 60
[2019-06-05 08:52] LABS: ANISOCYTOSIS 1+; LARGE PLATELETS OCCASIONAL; LYMPHS 5 % (21-51); MONO 1 % (1-9); SEGS 94 % (42-75)
[2019-06-05] MEDS: NORVASC PO SCH (09:00)
[2019-06-05] MEDS: LOVENOX SUBQ SCH (09:00)
[2019-06-05] MEDS ORDERED: SOLU-MEDROL IV SCH (09:00)
[2019-06-05] MEDS: PEPCID PO SCH ×2 (09:00→20:46)
--- NOTE | 2019-06-05 14:25 | PROGRESS NOTE ---
DATE: 06/05/2019 SUBJECTIVE: Patient is still complaining of mild shortness of breath but, compared with admission it is much better. He is still using a nasal cannula. I will ask for home O2 evaluation to see if he requires oxygen at home. I will stop the steroids as well. Hopefully, he will be discharged during the weekend. OBJECTIVE: Vital Signs: Temperature 98.3 degrees, pulse 96, respiratory rate 16, blood pressure 124/63, and oxygen saturation 96% on 2 L of nasal cannula. HEENT: Head normocephalic. No trauma. PERRLA. Neck: Supple. No JVD. No masses. Central trachea. Chest: Decreased breath sounds globally with prolonged expiratory phase and end-expiratory wheezing, faint. He has rhonchi on the left lower lobe and mid lobe, some crepitus, mostly at the bases. Abdomen: Soft, nontender, and nondistended. No hepatosplenomegaly. Extremities: No edema. No clubbing. No cyanosis. Neurological: The patient is alert. He is oriented x3. No focal deficits. LABORATORY: WBC 29.6, hemoglobin 10.5, hematocrit 32.1, and platelets 362,000. Sodium 136, potassium 3.8, chloride 100, bicarbonate 24, BUN 13, creatinine 0.6, glucose 85 and calcium 9. ASSESSMENT AND PLAN: 1. COPD with mild exacerbation. Due to left lower lobe pneumonia, continue breathing treatment, oxygen supplementation, antibiotics, and pulmonary toilet. He has been on steroids as well. Pulmonary Department following this patient. 2. Acute hypoxemic respiratory failure likely due to COPD and pneumonia, aware. Probably, this patient will need to go home with oxygen. 3. Left lower lobe pneumonia. Continue with antibiotics. 4. Hypertension. Continue with same management stable. 5. Chronic constipation aware. 6. Hyponatremia resolved. 7. Hypokalemia resolved. 8. Normocytic anemia. Aware. 9. Leukocytosis. His white blood cell count is still elevated at 29, which is around the same compared with yesterday, but this patient has been having chronic issues with elevation of the white blood cell count since 2014. At this time, it seems to be higher than before. Probably, he will benefit from an outpatient hematology oncology evaluation. 10. Chronic back pain. Continue [place] as needed. 11. Deep vein thrombosis prophylaxis with Lovenox. 12. Overall, this patient is doing better. Hopefully during the weekend, I will be able to discharge this patient home. I will continue with the same management. I have stopped the steroids. cc: Pavan Doe MD
--- NOTE | 2019-06-05 19:14 | PULMONOLOGY PROGRESS NOTE ---
DATE: 06/05/2019 SUBJECTIVE: The patient is awake, alert, and conversant. He feels like he may be having a sweat. He continues to have cough and sputum production. OBJECTIVE: Vital Signs: The patient has been afebrile for the last 24 hours. Blood pressure 132/76, heart rate 113, respiratory rate 20, oxygen saturation 91% on 2 L per nasal cannula. HEENT: Pupils are equal and reactive. Oropharynx appears clear. Neck: Supple. Chest: Rhonchi bilaterally with crackles at the left base. Cardiac: S1, S2. Abdomen: Soft and without hepatosplenomegaly. Extremities: Without edema. LABORATORIES: Sputum culture is growing a gram-negative slick. White blood count 29.6 thousand, hemoglobin 10.5, platelet count 362,000. Sodium 136, potassium 3.8, chloride 100, bicarbonate 24, BUN 13, creatinine 0.6. 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 The patient has significant architectural disease in his left lung base, and it is anticipated that he may require more than the routine course of antibiotics to clear this area. The patient also has chronic hypoxemic respiratory failure and is on home oxygen. RECOMMENDATIONS: 1. Continue current antibiotic regimen pending results of sputum culture. Hopefully, this will be available tomorrow. 2. Continue incentive spirometry. 3. Continue bronchodilators. 4. Anticipate a longer course of antibiotics as outlined above. cc: Yang Roberson MD
[2019-06-06] MEDS: MAXIPIME 2 GM in NS 100 ML IV SCH ×2 (00:51→15:56)
[2019-06-06] MEDS: NORCO-10 PO PRN ×3 (01:30→21:32)
[2019-06-06] MEDS: DUONEB (A & A) INH SCH ×2 (03:36→09:38)
[2019-06-06] MEDS: PRILOSEC PO SCH (06:36)
[2019-06-06 07:16] LABS: BASO# 0.03 X1000 (0.0-0.2); BASO% 0.1 % (0.0-0.8); EOS# 0.51 X1000 (0.0-0.7); EOS% 2.3 % (0.0-10.0); HEMATOCRIT 30.7 % (42.0-52.0); IMM GRAN# 0.08 X1000 (0.0-0.04); IMM GRAN% 0.4 % (0.0-0.5); LYMPH# 1.99 X1000 (1.2-3.4); LYMPH% 9.1 % (20.5-51.1); MCH 27.9 PG (27-31); MCHC 32.6 g/dL (33-37); MCV 85.8 FL (81-99); MONO# 1.58 X1000 (0.11-0.59); MONO% 7.2 % (1.7-9.3); MPV 9.8 FL (7.4-10.4); NEUT# 17.63 X1000 (1.4-6.5); NEUT% 80.9 % (42.2-75.2); PLT 324 X1000 (130-400); RBC 3.58 XMIL (4.7-6.1); RDW 16.8 % (11.5-14.5); WBC 21.82 X1000 (4.8-10.8)
[2019-06-06 07:34] LABS: AGAP 12; BUN 10 mg/dL (8-22); CALCIUM 8.4 mg/dL (8.8-10.2); CHLORIDE 93 mmol/L (98-107); COSMO 262; CREATININE 0.7 mg/dL (0.7-1.2); ESTIMATED GFR > 60; GLUCOSE 78 mg/dL (70-104); POTASSIUM 3.4 mmol/L (3.5-5.1); SODIUM 132 mmol/L (136-145); TCO2 27 mmol/L (25-35)
--- NOTE | 2019-06-06 08:16 | Diag Imaging Result Doc PS360 ---
EXAM: CHEST-2 VIEWS 06/06/2019 HISTORY: abnormal exam TECHNIQUE: PA and lateral chest COMMENT: There is pleural thickening bilaterally in the apices. There is a large cavity in the left upper lobe with an air-fluid level. The cavity is larger and the air-fluid level is new since the previous study of 06/03/2019. The right lung is actually slightly better expanded than on the previous study. There continues to be reticulonodular opacity throughout the remainder of the left lung which may be slightly worse. IMPRESSION: Probably infected cavity in the left apex and worsened left lower lobe pneumonia. Electronically signed by Sudheer Fowler 06/06/2019 8:14 AM
[2019-06-06] MEDS: NORVASC PO SCH (09:07)
[2019-06-06] MEDS: PEPCID PO SCH ×2 (09:07→20:46)
[2019-06-06] MEDS: LOVENOX SUBQ SCH (09:07)
[2019-06-06] MEDS ORDERED: CARDIZEM IV ONE (10:03)
--- NOTE | 2019-06-06 10:18 | EKG Report ---
Test Performed on : 06/06/2019 09:42:46 AM Test Reason : Tachycardia Blood Pressure : / mmHG Vent. Rate : 183 BPM Atrial Rate : 182 BPM P-R Int : 000 ms QRS Dur : 116 ms QT Int : 258 ms P-R-T Axes : 000 085 022 degrees QTc Int : 450 ms Supraventricular tachycardia. Right bundle branch block Abnormal ECG When compared with ECG of 04-JUN-2019 12:35, (Unconfirmed) premature ventricular complexes. are no longer present Confirmed by Russell Childress MD ([id number]) on 06/07/2019 9:33:10 PM
[2019-06-06] MEDS ORDERED: CARDIZEM 100 MG/NS 100 MG/100 ML IVPB IV SCH (11:15)
[2019-06-06] MEDS ORDERED: CARDIZEM 125/NS 125 MG/125 ML IVPB IV SCH (12:00)
[2019-06-06] MEDS ORDERED: KLOR-CON PO ONE (13:26)
[2019-06-06 14:29] LABS: MAGNESIUM 1.6 mg/dL (1.5-2.7); PHOSPHORUS 2.4 mg/dL (2.7-4.5)
[2019-06-06 14:31] LABS: AGAP 9; BUN 9 mg/dL (8-22); CALCIUM 8.4 mg/dL (8.8-10.2); CHLORIDE 93 mmol/L (98-107); COSMO 259; CREATININE 0.6 mg/dL (0.7-1.2); ESTIMATED GFR > 60; GLUCOSE 92 mg/dL (70-104); SODIUM 130 mmol/L (136-145); TCO2 28 mmol/L (25-35)
[2019-06-06] MEDS ORDERED: LANOXIN IV ONE ×2 (14:35→19:30)
--- NOTE | 2019-06-06 14:42 | PROGRESS NOTE ---
DATE: 06/06/2019 SUBJECTIVE: This patient is still having some shortness of breath, but the main issue now is that he is having supraventricular tachycardia, but basically he is not having any new symptoms. He is having some mild shortness of breath, but compared with yesterday is about the same. No mental status changes. No shock. No chest pain. No hypotension. I gave him some diltiazem IV, but the rhythm is about the same so I will try to give him some Cardizem drip to try to improve the heart rate. OBJECTIVE: Vital Signs: Temperature 98.5 degrees, pulse 181, respiratory rate 16, blood pressure 118/74, oxygen saturation 96% on 2 L of nasal cannula. HEENT: Head normocephalic, no trauma. PERRLA. Neck: Supple. No JVD. No masses. Central trachea. Chest: Decreased breath sounds globally with prolonged expiratory phase. No wheezing today. He has some rhonchi at the level of the left lower lobe and middle lobe and crepitus as well, mostly at the bases. Abdomen: Soft, nontender, nondistended. No hepatosplenomegaly. Cardiovascular: RRR. Tachycardic. Extremities: No edema, no clubbing, no cyanosis. Neurological examination: The patient is alert. He is oriented. No focal deficits. LABORATORY: WBC 21.8, hemoglobin 10, hematocrit 30.7, platelets 324. Sodium 132, potassium 3.4, chloride 93, bicarbonate 27. BUN 10, creatinine 0.7, glucose 78, calcium 8.4. ASSESSMENT AND PLAN: 1. Acute hypoxemic respiratory failure likely due to chronic obstructive pulmonary disease and pneumonia. Apparently he has been on home oxygen before, but likely he will be on oxygen again to go home. Will continue with same management. Pulmonary Department on board. 2. Chronic obstructive pulmonary disease with mild exacerbation. Aware. 3. Left lower lobe pneumonia. We will continue with antibiotics. 4. Supraventricular tachycardia. He received a dose of diltiazem intravenous stat, but his rhythm is still elevated, so he is asymptomatic and has been placed on diltiazem drip. We will monitor this patient closely. We will consult Cardiology Department if the rhythm is about the same, or if he is having symptoms. 5. Hypertension. Continue same management. Stable. 6. Chronic constipation, aware. 7. Hyponatremia, resolved. 8. Hypokalemia, mild. I will replace the potassium. 9. Normocytic anemia, aware. 10. Leukocytosis. A white blood cell count is getting better. This patient has a chronic elevated white blood cell count at least since 2014. Will continue to monitor. Probably he will benefit from an outpatient Hematology/Oncology consultation. 11. Chronic back pain. Continue with [place] as needed. 12. Deep vein thrombosis prophylaxis with Lovenox. Overall, this patient is not having new symptoms, but now he is having supraventricular tachycardia. He will be transferred to the CIC unit. He will be placed on Cardizem drip. We will monitor this patient closely. cc: Pavan Doe MD
[2019-06-06] MEDS ORDERED: SOLU-MEDROL IV ONE (14:50)
[2019-06-06] MEDS ORDERED: ATROVENT NEB INH SCH (15:30)
--- NOTE | 2019-06-06 15:31 | Diag Imaging Result Doc PS360 ---
EXAM: CHEST-PORTABLE 06/06/2019 HISTORY: Increased wheezing TECHNIQUE: AP portable at 1517 COMMENT: The air-fluid level which was previously present at 0802 in the cavity in the left upper lobe has diminished and the cavity size appears smaller. There continues to be coarse opacity throughout much of the left lung. Considering differences in inspiration there has been no appreciable change since previous study. IMPRESSION: Apical pleural and parenchymal fibrosis. Left lower lobe and lingular pneumonia. Electronically signed by Sudheer Fowler 06/06/2019 3:28 PM
[2019-06-06] MEDS ORDERED: XOPENEX NEB INH ONE (15:40)
[2019-06-06] MEDS ORDERED: NS NEB INH SCH (15:45)
--- NOTE | 2019-06-06 16:23 | EKG Report ---
Test Performed on : 06/06/2019 3:31:31 PM Test Reason : Heart rate Blood Pressure : / mmHG Vent. Rate : 176 BPM Atrial Rate : 174 BPM P-R Int : 000 ms QRS Dur : 116 ms QT Int : 238 ms P-R-T Axes : 000 087 030 degrees QTc Int : 407 ms Supraventricular tachycardia. with occasional premature ventricular complexes. Right bundle branch block Abnormal ECG When compared with ECG of 06-JUN-2019 09:42, (Unconfirmed) premature ventricular complexes. are now present Confirmed by Russell Childress MD ([id number]) on 06/07/2019 9:33:14 PM
[2019-06-06] MEDS ORDERED: MAGNESIUM SULFATE 4 GM/S.W.I. 4 GM/100 ML IVPB IV ONE (16:30)
[2019-06-06] MEDS ORDERED: POTASSIUM CHLORIDE 20% LIQUID PO ONE (19:30)
--- NOTE | 2019-06-06 20:02 | PULMONOLOGY PROGRESS NOTE ---
DATE: 06/06/2019 SUBJECTIVE: The patient continues to cough and have increased sputum production. He has mild increase in shortness of breath today, but he currently has a tachyarrhythmia and is being transferred to the CIC unit. OBJECTIVE: Maximum temperature in the last 24 hours 100.4 degrees, heart rate 178, blood pressure 125/69, oxygen saturation 90% on 3 L per nasal cannula.HEENT: Pupils are equal and reactive. Oropharynx is clear. Neck is supple. Chest reveals scattered rhonchi bilaterally. Cardiac exam: Increased rate with irregular rhythm. Abdomen is soft. Extremities are without edema. LABORATORY DATA: White blood count 21.82, hemoglobin 10.0, platelet count 324,000. Sodium 130, potassium 3.0, chloride 93, bicarbonate 28, BUN 9, creatinine 0.6, magnesium 1.6. DIAGNOSTIC DATA: Chest x-ray reveals biapical cavitary disease with some decrease in size of the left upper lobe cavity with decreased fluid. He continues to have infiltrate in the left lung. IMPRESSION: A 64-year-old with: 1. Left lower lobe pneumonia. 2. 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 Previous evaluation for tuberculosis in 2017 was negative. 3. Hypoxemic respiratory failure. 4. New-onset supraventricular tachycardia. PLAN: 1. Continue current antibiotic regimen. 2. Agree with transfer to the ICU. The patient may require cardioversion. 3. Continue bronchodilators. 4. Anticipate a prolonged antibiotic course, given the patient's poor pulmonary parenchymal architecture. He has several smaller bullae/blebs in the left lower lobe which may be difficult to clear with a short antibiotic course. cc: Yang Roberson MD
[2019-06-06] MEDS: CARDIZEM 125 MG in NS 100 ML IV SCH (22:01)
--- NOTE | 2019-06-06 23:19 | EKG Report ---
Test Performed on : 06/06/2019 10:05:04 PM Test Reason : conversion of svt to sinus Blood Pressure : / mmHG Vent. Rate : 067 BPM Atrial Rate : 067 BPM P-R Int : 140 ms QRS Dur : 136 ms QT Int : 390 ms P-R-T Axes : 075 077 067 degrees QTc Int : 412 ms Normal sinus rhythm. Right bundle branch block Abnormal ECG When compared with ECG of 06-JUN-2019 15:31, (Unconfirmed) premature ventricular complexes. are no longer present Vent. rate has decreased BY 109 BPM QRS duration has increased Confirmed by Russell Childress MD ([id number]) on 06/08/2019 12:41:17 PM
[2019-06-07] MEDS ORDERED: LANOXIN IV ONE
[2019-06-07] MEDS: MAXIPIME 2 GM in NS 100 ML IV SCH (03:16)
[2019-06-07 05:52] LABS: EOS# 0.05 X1000 (0.0-0.7); EOS% 0.4 % (0.0-10.0); HEMATOCRIT 31.6 % (42.0-52.0); HEMOGLOBIN 10.3 g/dL (14.0-18.0); IMM GRAN# 0.06 X1000 (0.0-0.04); IMM GRAN% 0.5 % (0.0-0.5); LYMPH# 1.03 X1000 (1.2-3.4); LYMPH% 8.3 % (20.5-51.1); MCH 27.9 PG (27-31); MCHC 32.6 g/dL (33-37); MCV 85.6 FL (81-99); MONO# 0.46 X1000 (0.11-0.59); MONO% 3.7 % (1.7-9.3); NEUT# 10.85 X1000 (1.4-6.5); NEUT% 87.1 % (42.2-75.2); PLT 331 X1000 (130-400); RBC 3.69 XMIL (4.7-6.1); RDW 17.2 % (11.5-14.5); WBC 12.45 X1000 (4.8-10.8)
[2019-06-07] MEDS: PRILOSEC PO SCH (05:59)
[2019-06-07 06:09] LABS: AGAP 10; BUN 12 mg/dL (8-22); CALCIUM 8.7 mg/dL (8.8-10.2); CHLORIDE 100 mmol/L (98-107); COSMO 278; CREATININE 0.6 mg/dL (0.7-1.2); ESTIMATED GFR > 60; GLUCOSE 147 mg/dL (70-104); MAGNESIUM 2.8 mg/dL (1.5-2.7); PHOSPHORUS 3.1 mg/dL (2.7-4.5); POTASSIUM 4.5 mmol/L (3.5-5.1); SODIUM 138 mmol/L (136-145); TCO2 28 mmol/L (25-35)
--- NOTE | 2019-06-07 06:56 | EKG Report ---
Test Performed on : 06/07/2019 06:19:16 AM Test Reason : SVT Blood Pressure : / mmHG Vent. Rate : 066 BPM Atrial Rate : 066 BPM P-R Int : 138 ms QRS Dur : 136 ms QT Int : 426 ms P-R-T Axes : 071 073 065 degrees QTc Int : 446 ms Normal sinus rhythm. Right bundle branch block Abnormal ECG When compared with ECG of 06-JUN-2019 22:05, (Unconfirmed) No significant change was found Confirmed by Russell Childress MD ([id number]) on 06/07/2019 9:33:16 PM
[2019-06-07] MEDS: PEPCID PO SCH ×2 (08:30→20:32)
[2019-06-07] MEDS: LOVENOX SUBQ SCH (08:30)
[2019-06-07] MEDS ORDERED: NS NEB INH SCH (08:45)
--- NOTE | 2019-06-07 09:02 | PROGRESS NOTE ---
DATE: 06/07/2019 SUBJECTIVE: This patient is resting comfortably in bed. He is feeling better. He converted back to sinus rhythm. Cardiology Department and Pulmonary Department on board. OBJECTIVE: Vital Signs: Temperature 97.7 degrees, pulse 71, respiratory rate 18, blood pressure 109/47, oxygen saturation 98 on 3 L of nasal cannula. HEENT: Head normocephalic. No trauma. PERRLA. Neck: Supple. No JVD. No masses. Central trachea. Chest: Decreased breath sounds globally with prolonged expiratory phase and end-expiratory wheezing. Some rhonchi at the level of the left lower lobe and middle lobe with crepitus mostly at the bases. Abdomen: Soft, nontender, nondistended. No hepatosplenomegaly. Cardiovascular: RRR. Tachycardic. Extremities: No edema, no clubbing, no cyanosis. Neurological: The patient is alert. He is oriented. No focal deficits. LABORATORY DATA: WBC 12.4, hemoglobin 10.3, hematocrit 31.6, platelets 331. Sodium 138, potassium 4.5, chloride 100, bicarbonate 28, BUN 12, creatinine 0.6, glucose 147, calcium 8.7. Magnesium 2.8. ASSESSMENT AND PLAN: 1. Acute hypoxemic respiratory failure, likely due to chronic obstructive pulmonary disease and pneumonia. Apparently, he has been on home oxygen before. Likely, he will be on home oxygen again. Will continue with the same management. He is on antibiotics, breathing treatment, bronchodilators. Pulmonary Department on board. 2. Chronic obstructive pulmonary disease with exacerbation. Aware. 3. Left lower lobe pneumonia. Continue with antibiotics. 4. Supraventricular tachycardia, resolved. Cardiology Department on board. He is still on the diltiazem drip. 5. Hypertension. Continue with the same management. Stable. 6. Chronic constipation. Aware. 7. Hyponatremia, resolved. 8. Hypokalemia, resolved. 9. Borderline hypomagnesemia. Magnesium has been replaced. 10. Deep venous thrombosis prophylaxis with Lovenox. cc: Pavan Doe MD
[2019-06-07] MEDS: XOPENEX NEB INH SCH ×4 (09:18→22:51)
[2019-06-07] MEDS: ATROVENT NEB INH SCH ×4 (09:18→22:51)
[2019-06-07] MEDS: LANOXIN PO SCH (09:41)
[2019-06-07] MEDS: ALDACTONE PO SCH (09:41)
[2019-06-07] MEDS: NORCO-10 PO PRN ×2 (09:44→19:06)
--- NOTE | 2019-06-07 10:02 | CARDIOLOGY CONSULTATION ---
DATE: 06/07/2019 REQUESTING PHYSICIAN: Hospitalist Service REASON FOR CONSULTATION: Supraventricular tachycardia, arrhythmia. CHIEF COMPLAINT: Shortness of breath. HISTORY: Mr. Soto is an unfortunate 64-year-old male who presented to the hospital for admission on 06/03/2019. At that time, he presented with a history of 2 days' duration of cough, chills, fever. Upon presentation, he has been diagnosed with a left lower lobe pneumonia. He has been treated with broad-spectrum antibiotics, cefepime. His sputum at the time of this dictation is growing Alcaligenes xylosoxidans, and this is sensitive to ceftazidime, imipenem, Bactrim, and Fortaz. It is intermediately sensitive to cefepime. The patient yesterday at around 9:00 in the morning developed tachycardia that had the appearance of supraventricular tachycardia. Relatively asymptomatic. He was somewhat short of breath, which he has been all along. Because of that, he was transferred to the Cardiac Unit, and we initiated treatment with intravenous Cardizem with a bolus of 20 mg and then a drip of 15 mg an hour. He received a total of 0.75 mg of digoxin given in divided doses and eventually at about 9 p.m. last night, he converted to sinus rhythm. This morning, he is in sinus rhythm. His 12-lead ECG done at 10:05 p.m. last night shows a sinus rhythm with a right bundle branch block. His heart rate at that time was 67 beats per minute. The patient feels generally better. He is not having any new complaints at this time. He is awake, cooperative. PAST MEDICAL HISTORY: Positive for advanced COPD. That was the reason for why he went on disability in the first place. He has had significant pulmonary scarring with cavitary lesions noted first on an admission in 01/2017 when they noted cavitary lesions in the lung. They have ruled out tuberculosis. He has history of hypertension. He has history of chronic back pain/sciatica. He does not use oxygen at home. PAST SURGICAL HISTORY: He has had retinal detachment. SOCIAL HISTORY: He is . He quit smoking about 4 years ago. He has been drinking alcohol in the past. He has no children. He used to work in construction. He went on disability in 1997. HOME MEDICATIONS: At the time of this admission include albuterol, amlodipine, famotidine, hydrocodone, Atrovent and nebulizer. He also uses Combivent. ALLERGIC: Penicillin and clindamycin. REVIEW OF SYSTEMS: He is usually short of breath when exerting himself at home. He is limited to ambulate also because of sciatica pain. He has no prior history of coronary heart disease. Of note, on the CT scan of the chest that was done on 06/03/2019, he does demonstrate calcifications of the aortic arch, and there is some coronary artery calcification. He evidently has atherosclerotic calcifications of the left main coronary artery and I believe also the right coronary artery and the aortic arch. PHYSICAL EXAMINATION: Vital signs: Today, his pulse is down to 71 beats per minute. Temperature 97.7 degrees, respirations 16, blood pressure 109/47. General: He is awake, alert, in no distress. He is cooperative. HEENT: Unremarkable. He appears to be chronically ill. He has an oxygen nasal cannula. Chest: Markedly diminished breath sounds with some end- expiratory wheezing in the right lung and Velcro-like crackles on the left base. There is some dullness to percussion at both bases. Heart: Sounds are regular and rhythmic. I do not hear any gallop or murmur. Abdomen: Soft, nontender. There is no hepatomegaly. No masses. Extremities: Palpable pulses. No obvious edema. Neurological: Follows commands. Moves all 4 extremities. DIAGNOSTIC DATA: Blood work shows his white cell count on admission was 32,000, has come down to 12,000. Hemoglobin 10.3, hematocrit 31.6. Sedimentation rate is 92 mL/hour. C-reactive protein is 210.35 mg/L. That indicates intense inflammatory process. Today, his sodium, potassium, and magnesium are all normal. Sodium is 138, potassium 4.5, magnesium is 2.8. Yesterday, his sodium was 130, his potassium was 3.0, and his magnesium was 1.6. We administered replacement of magnesium and potassium already. IMPRESSION: 1. Paroxysmal supraventricular tachycardia. This is probably secondary to the metabolic stress of the ongoing acute left pneumonic process. This is a gram-negative pneumonia. 2. Advanced chronic obstructive pulmonary disease with cavitary lesions in the lungs. Rule out "fungus ball" in the right upper lobe. 3. Coronary atherosclerosis noted on CT scan of the chest. 4. Former smoker. 5. Chronic back pain. 6. History of hypertension. RECOMMENDATION: At this time, we will continue the patient on digoxin. I am going to add spironolactone. We will continue IV Cardizem today and then tomorrow, we will switch over to oral doses of Cardizem. We will see how he does. Cardiac-wolfe I will request an echocardiogram. However, I do not anticipate performing any ischemic workup at this stage. His pneumonia first needs to be treated and resolved before thinking about doing any ischemic workup. cc: Eliecer Ceja MD [facility]
[2019-06-07] MEDS ORDERED: ATROVENT NEB INH SCH (11:30)
[2019-06-07] MEDS: TAZIDIME 2 GM/NS 2 GM/100 ML IVPB IV SCH ×2 (14:33→22:19)
--- NOTE | 2019-06-07 14:39 | INFECTIOUS DISEASE CONSULT REP ---
DATE: 06/07/2019 CONCLUSION: The patient has an alcaligenes pneumonia. Unfortunately, the patient has very severe chronic obstructive pulmonary disease with fibrosis and cavitary lesions. The patient may have an immunoglobulin deficiency. RECOMMENDATIONS: I have switched the patient from cefepime to ceftazidime in a dose of 2 g IV every 8 hours. I have requested that a PICC be placed and I put a consult in for [facility] to supply antibiotics at home when the patient is discharged. Some of the side effects of ceftazidime, including rash and diarrhea, have been explained to the patient who agrees with treatment. The patient has an allergy to penicillin manifested by rash, but the patient has had Keflex in the past and now is taking cefepime which are cephalosporin antibiotics as is ceftazidime. Therefore, I do not think the patient will have any problem tolerating ceftazidime. I have ordered immunoglobulin levels. I am going to order for the nurse to watch the patient during the first dose of ceftazidime. DISCUSSION: The patient tells me about 5 to 6 days ago he started having cough and fever. He began producing yellow sputum a culture of which grew alcaligenes. The patient also is having left-sided pleuritic chest pain. His CBC shows a white count of 12,450, hemoglobin 10.3, and platelet count 331,000. Creatinine is 0.6. GFR is greater than 60. The patient's sputum is growing alcaligenes. Chest x-ray shows fibrosis and left lower lobe and lingular pneumonia. PAST MEDICAL HISTORY/REVIEW OF SYSTEMS: Eyes and ears: The patient wears glasses. He has decreased vision in the right eye. His hearing is okay. Neck: No stiffness. Respiratory: See present illness. The patient does have dyspnea on exertion secondary to his COPD. Cardiac: The patient has chest pain but it is pleuritic in nature and I do not think it is due to any cardiac disease. GI: No nausea, vomiting, or diarrhea. : No dysuria or flank pain. Bones, joints and muscles: No joint swelling or muscle aching. Endocrine: The patient does not have diabetes or thyroid disease. Neurologic: No seizures. No loss of motor or sensory function. Integument: No rash. PREVIOUS HOSPITALIZATIONS AND OPERATIONS: Patient has had surgery on his eye. He has been admitted multiple times because of COPD, mainly because he has developed pneumonia. MEDICAL DISEASES: Positive for COPD and hypertension, gastroesophageal reflux disease. INFECTIOUS DISEASE HISTORY: Positive for recurrent pneumonia and UTI. PRESENT ILLNESS: I agree with Dr. Roberson that because of the patient's altered lung structure he will require a longer dose of antibiotics and also a higher dose than somebody with normal lungs. FAMILY HISTORY: Positive for hypertension, myocardial infarction, congestive heart failure and pulmonary edema. SOCIAL HISTORY: The patient lives in [place]. He is . He has cats for pets. He is allergic to clindamycin and penicillin. As mentioned above, the patient's allergy to penicillin was a rash and the patient has taken Keflex in the past and now is on cefepime and tolerating it well and therefore I do not think the patient will have any problem tolerating ceftazidime but I am going to go ahead and order for the nurse to watch him during the first dose. The patient is disabled. His disability is due to COPD. The patient stopped smoking cigarettes 2 years ago. He does not drink alcoholic beverages or abuse drugs. He has an allergy to penicillin and clindamycin. HOME MEDICATIONS: Include albuterol inhaler, Norvasc, Pepcid, hydrocodone, Atrovent and Combivent inhalers. PHYSICAL EXAMINATION: Vital Signs: Temperature is 98.5 degrees, pulse 78, respirations 16, blood pressure 109/52. The patient is 5 feet 8 inches tall, weighs 150 pounds. General: The patient is a ill-appearing elderly male. He is in no acute distress lying in bed. Head, eyes, ears, nose, and throat: Can hear my spoken words and see near objects. He is wearing glasses. He does not have any white patches in his mouth. Neck: No meningismus. Thorax: Patient has an increased AP diameter. Lungs: I heard some rales on the left side. The right side was clear. Cardiovascular: Heart rate was regular. Abdomen: Soft and nontender. Extremities: No leg edema. Neurologic: Patient is alert. He can move his extremities. There is no tremor. His sensation is intact to touch. His memory as regarding his medical history is good. Integument: No rash noted. Thank you for the consult. cc: Xander Mcclain MD
--- NOTE | 2019-06-07 15:17 | PULMONOLOGY PROGRESS NOTE ---
DATE: 06/07/2019 SUBJECTIVE: The patient is awake, alert, and conversant. He continues to have cough with purulent-looking sputum. OBJECTIVE: Vital Signs: The patient has been afebrile for the last 24 hours. Blood pressure 109/52, heart rate 78, respiratory rate 16, oxygen saturation 98%. HEENT: Pupils are equal and reactive. Oropharynx appears clear. Neck is supple. Chest reveals scattered rhonchi bilaterally. Cardiac Examination: S1-S2. Abdomen is soft. Extremities were without edema. Laboratories: White blood count 12.45, hemoglobin 10.3, platelet count 331,000. Sodium 138, potassium 4.5, chloride 100, bicarbonate 28, BUN 12, creatinine 0.6. Microbiology reveals a sputum culture growing alcaligenes xylosoxidans species which has intermediate resistance to cefepime. It is sensitive to ceftazidime, imipenem, Zosyn, and sulfa drugs. IMPRESSION: A 64-year-old with: 1. Left lower lobe pneumonia. 2. Biapical cavitary disease with negative evaluation for tuberculosis in 2006. 3. Hypoxemic respiratory failure. 4. New onset supraventricular tachycardia. DISCUSSION: A 64-year-old with problems outlined above. The patient has significant architectural disease in his lungs and will likely require a prolonged course of antibiotics. I will ask Dr. Xander Mcclain to make recommendations for antibiotics, given his allergy to penicillins. PLAN: 1. Antibiotics as directed by Dr. Xander Mcclain. 2. Anticipate the need for prolonged antibiotics. 3. Continue bronchodilators. cc: Yang Roberson MD
--- NOTE | 2019-06-07 18:01 | ECHO REPORT ---
ORDER DATE: 06/07/2019 INTERPRETING PHYSICIAN: Dr. Ceja CLINICAL INDICATIONS: Pneumonia. Supraventricular tachycardia. M-MODE MEASUREMENTS: Left ventricle end diastole: 5.1 cm. Left ventricle end systole: 3.0 cm. Posterior wall: 0.9 cm. Interventricular septum: 0.9 cm. Left atrium: 3.3 cm. Aortic diameter: 3.3 cm. SUMMARY OF 2-DIMENSIONAL IMAGIN. The left ventricular function is normal. Ejection fraction is estimated at 55% to 60%. There is no wall motion abnormality noted. 2. Aortic valve shows some sclerosis of the cusps without stenosis. Color flow mapping is unremarkable. 3. Mitral valve shows mild degree of regurgitation. 4. Pulse wave Doppler of mitral inflow is normal. 5. Tissue Doppler of septal and lateral mitral annulus averages 13 cm. There is no diastolic dysfunction. 6. Tricuspid valve shows mild to moderate degree of regurgitation. 7. Inferior vena cava is not dilated. 8. Pulmonary pressure is estimated at 53 mmHg. 9. Pulmonic valve is grossly unremarkable. 10.There is no pericardial effusion, mass or thrombus. CONCLUSIONS: In summary, this study shows: 1. Normal left ventricular systolic function. 2. Sclerosis of the aortic valve without stenosis. 3. No diastolic dysfunction. 4. Pulmonary pressure is estimated at 53 mmHg. 5. There is mild to moderate degree of tricuspid regurgitation and trivial degree of mitral regurgitation. Clinical correlation is recommended. cc: Eliecer Ceja MD
[2019-06-07] MEDS: CARDIZEM 125 MG in NS 100 ML IV SCH (20:36)
[2019-06-08] MEDS: NORCO-10 PO PRN ×3 (03:00→20:06)
[2019-06-08] MEDS: ATROVENT NEB INH SCH ×5 (03:07→23:03)
[2019-06-08] MEDS: XOPENEX NEB INH SCH ×5 (03:07→23:03)
[2019-06-08 05:55] LABS: AGAP 10; BUN 11 mg/dL (8-22); CALCIUM 8.8 mg/dL (8.8-10.2); CHLORIDE 98 mmol/L (98-107); COSMO 274; CREATININE 0.6 mg/dL (0.7-1.2); ESTIMATED GFR > 60; GLUCOSE 114 mg/dL (70-104); INR 1.13; MAGNESIUM 2.2 mg/dL (1.5-2.7); POTASSIUM 3.9 mmol/L (3.5-5.1); PROTIME 14.7 Seconds (11.0-16.0); SODIUM 137 mmol/L (136-145); TCO2 29 mmol/L (25-35)
[2019-06-08] MEDS: TAZIDIME 2 GM/NS 2 GM/100 ML IVPB IV SCH ×3 (06:26→23:14)
[2019-06-08] MEDS: PRILOSEC PO SCH (06:27)
[2019-06-08 06:55] LABS: BASO# 0.01 X1000 (0.0-0.2); BASO% 0.1 % (0.0-0.8); EOS# 0.11 X1000 (0.0-0.7); EOS% 0.7 % (0.0-10.0); HEMATOCRIT 31.5 % (42.0-52.0); LYMPH# 2.22 X1000 (1.2-3.4); LYMPH% 14.7 % (20.5-51.1); MCH 28.2 PG (27-31); MCHC 31.7 g/dL (33-37); MONO# 1.22 X1000 (0.11-0.59); MONO% 8.1 % (1.7-9.3); MPV 10.3 FL (7.4-10.4); NEUT# 11.54 X1000 (1.4-6.5); NEUT% 76.4 % (42.2-75.2); PLT 372 X1000 (130-400); RBC 3.54 XMIL (4.7-6.1); RDW 17.2 % (11.5-14.5)
[2019-06-08] MEDS ORDERED: NS 250 ML ONE (08:11)
[2019-06-08] MEDS: ALDACTONE PO SCH (08:25)
[2019-06-08] MEDS: LOVENOX SUBQ SCH (08:25)
[2019-06-08] MEDS: LANOXIN PO SCH (08:26)
[2019-06-08] MEDS: PEPCID PO SCH ×2 (08:26→20:07)
--- NOTE | 2019-06-08 09:15 | CARDIOLOGY PROGRESS NOTE ---
DATE: 06/08/2019 CHIEF COMPLAINT: Dyspnea, cough, fever, and irregular rapid heart rate. SUBJECTIVE: Mr. Soto has converted to sinus rhythm. He is feeling more comfortable now. He is still coughing. OBJECTIVE: Blood pressure is 119/55, temperature 97.8, pulse 73, respirations 20. He is awake, alert, no distress, chronically ill. HEENT is unremarkable. Chest: Diminished breath sounds with some crepitans at the level of the left base. Some prolonged end expiratory wheezing. Heart sounds are regular and rhythmic. I do not hear gallop or murmur. Abdomen was nontender. Extremities showed no edema. Neurologic: Follows commands, moves all 4 extremities. DIAGNOSTIC DATA: Blood work today shows sodium 137, potassium 3.9, magnesium 2.2, BUN is 11, creatinine 0.6. IMPRESSION: 1. The patient developed paroxysmal supraventricular tachycardia in the midst of a left lung pneumonia. 2. Gram-negative pneumonia. 3. Advanced chronic obstructive pulmonary disease. 4. Evidence of coronary atherosclerosis on CT scan of the chest. 5. Former smoker. 6. Chronic back pain. RECOMMENDATIONS: At this time, I would suggest to continue with present therapy including digoxin, diltiazem, and spironolactone. We will initiate diltiazem by mouth. We will follow him. cc: Eliecer Ceja MD MTDD
--- NOTE | 2019-06-08 09:24 | PROGRESS NOTE ---
DATE: 06/08/2019 SUBJECTIVE: The patient is resting comfortably in bed. He is feeling better, still sinus rhythm. Cardiology Department and Pulmonary Department on board. He has been evaluated by Infectious Disease Department. They have decided to place a PICC line, so the patient can go home with antibiotics. Today, it looks like this patient will start taking p.o. treatment with Cardizem. I will monitor this patient for 20 more hours. The drip will be stopped as well. Hopefully, tomorrow I can discharge this patient home. OBJECTIVE: Vital Signs: Temperature 97.7 degrees, pulse 82, respiratory rate 23, blood pressure 121/62, oxygen saturation 100% on 4 L of nasal cannula. HEENT: Head normocephalic. No trauma. PERRLA. Neck: Supple. No JVD. No masses. Central trachea. Chest: Decreased breath sounds globally with prolonged expiratory phase and end-expiratory wheezing. Some rhonchi at the level of the left lower lobe and middle lobe with crepitus mostly at the bases. Abdomen: Soft, nontender, nondistended. No hepatosplenomegaly. Cardiovascular: Regular rate and rhythm. Extremities: No edema, no clubbing, no cyanosis. Neurological: Alert and oriented x3. No focal deficits. LABORATORY DATA: WBC 15.1, hemoglobin 10, hematocrit 31.5, platelets 372,000. Sodium 137, potassium 3.9, chloride 98, bicarbonate 29, BUN 11, creatinine 0.6, glucose 114, calcium 8.8, magnesium 2.2. ASSESSMENT AND PLAN: 1. Acute hypoxemic respiratory failure likely due to chronic obstructive pulmonary disease and pneumonia. Apparently, he has been on home oxygen before. Likely, he will need to go home again with oxygen. I will ask for home O2 evaluation today. He is on antibiotics, breathing treatment/bronchodilators. Pulmonary Department on board. 2. Chronic obstructive pulmonary disease with exacerbation, aware. 3. Left lower lobe pneumonia. Continue with antibiotics per Infectious Disease Department. 4. Supraventricular tachycardia, resolved. Cardiology Department on board. He has been placed on diltiazem drip, which will be stopped, and we will start this patient on Cardizem p.o. 5. Hypertension. Will continue with same management, stable. 6. Chronic constipation, aware. 7. Hyponatremia, resolved. 8. Hypokalemia, resolved. 9. Borderline hypomagnesemia, resolved. 10. Deep vein thrombosis prophylaxis with Lovenox. Overall, this patient is doing better. We have stopped the Cardizem drip today and switched it to p.o. He will get a PICC line placed. He will have a home O2 evaluation to decide if this patient needs oxygen at home or not, but likely he will needed it. cc: Pavan Doe MD
--- NOTE | 2019-06-08 10:25 | INFECTIOUS DISEASE PROGRESS NO ---
DATE: 06/08/2019 PRESENT ILLNESS: The patient has an alcaligenes pneumonia. MEDICATIONS: The patient has been switched to ceftazidime 2 g IV every 8 hours starting yesterday. The patient may have an immunoglobulin deficiency. PHYSICAL EXAMINATION: Vital Signs: Temperature is 97.8 degrees, pulse 76, respirations 20, blood pressure 119/55. General: This is a chronically ill-appearing elderly male. He is in no acute distress. Head, eyes, ears, nose, and throat: He can hear my spoken words and see near objects. He does not have any white patches in his mouth. Neck: No pain with movement of the neck. Lungs: Clear to auscultation. Cardiovascular: Heart rate is regular. Abdomen: Soft and nontender. Neurologic: The patient is alert. He can move his extremities. There is no tremor. LAB AND X-RAY: There is no new x-ray for today. The patient's CBC shows a white count of 15,100, hemoglobin 10, and platelet count 372,000. Creatinine is 0.6, GFR is greater than 60. The patient's sputum as mentioned above grew alcaligenes. ASSESSMENT AND PLAN: The patient has pneumonia. The plan is to send him home on IV ceftazidime. I have put in a consult to have a PICC placed and I put in a consult with social service to set up the home IV antibiotics. I agree with Dr. Roberson that since the patient has very severe lung disease it is going to take a longer time an higher dose of antibiotics to clear up his pneumonia. Immunoglobulin levels have been ordered. COMORBIDITIES: The patient is elderly. He has chronic obstructive pulmonary disease and gastroesophageal reflux disease. cc: Xander Mcclain MD [facility]
[2019-06-08] MEDS: CARDIZEM PO SCH ×2 (13:08→20:07)
[2019-06-09] MEDS: ATROVENT NEB INH SCH ×4 (03:10→21:24)
[2019-06-09] MEDS: XOPENEX NEB INH SCH ×4 (03:10→21:24)
[2019-06-09] MEDS: NORCO-10 PO PRN ×3 (04:17→19:58)
[2019-06-09] MEDS: CARDIZEM PO SCH ×3 (05:19→19:59)
[2019-06-09 05:39] LABS: BASO# 0.02 X1000 (0.0-0.2); BASO% 0.1 % (0.0-0.8); EOS# 0.29 X1000 (0.0-0.7); EOS% 2.1 % (0.0-10.0); HEMATOCRIT 32.3 % (42.0-52.0); HEMOGLOBIN 10.4 g/dL (14.0-18.0); IMM GRAN# 0.16 X1000 (0.0-0.04); IMM GRAN% 1.1 % (0.0-0.5); LYMPH# 1.92 X1000 (1.2-3.4); LYMPH% 13.6 % (20.5-51.1); MCH 27.8 PG (27-31); MCHC 32.2 g/dL (33-37); MCV 86.4 FL (81-99); MPV 9.8 FL (7.4-10.4); NEUT# 10.03 X1000 (1.4-6.5); NEUT% 71.1 % (42.2-75.2); PLT 378 X1000 (130-400); RBC 3.74 XMIL (4.7-6.1); RDW 17.2 % (11.5-14.5); WBC 14.12 X1000 (4.8-10.8)
[2019-06-09 06:00] LABS: AGAP 10; ALB/GLOB RATIO 0.7; ALBUMIN 2.6 g/dL (3.5-5.0); ALKALINE PHOSPHATASE 52 U/L (32-122); BUN 8 mg/dL (8-22); CALCIUM 8.4 mg/dL (8.8-10.2); CHLORIDE 94 mmol/L (98-107); COSMO 263; CREATININE 0.5 mg/dL (0.7-1.2); ESTIMATED GFR > 60; GLUCOSE 105 mg/dL (70-104); GOT 12 U/L (10-34); GPT 18 U/L (10-44); POTASSIUM 3.8 mmol/L (3.5-5.1); SODIUM 132 mmol/L (136-145); TCO2 28 mmol/L (25-35); TOTAL BILIRUBIN 0.52 mg/dL (0.20-1.00); TOTAL PROTEIN 6.3 g/dL (6.3-8.3)
[2019-06-09] MEDS: TAZIDIME 2 GM/NS 2 GM/100 ML IVPB IV SCH ×3 (06:33→23:19)
[2019-06-09] MEDS: PRILOSEC PO SCH (06:33)
--- NOTE | 2019-06-09 06:51 | INFECTIOUS DISEASE PROGRESS NO ---
DATE: 06/09/2019 PRESENT ILLNESS: The patient has an alcaligenes pneumonia. Today I noticed that the patient has developed oral candidiasis. MEDICATIONS: The patient is on ceftazidime 2 grams IV every 8 hours. I have started the patient on Mycostatin swish and swallow for his newly discovered oral candidiasis. I checked the patient's immunoglobulin levels and they were normal. Therefore, the patient does not have an immunoglobulin deficiency. PHYSICAL EXAMINATION: Vital Signs: Temperature is 98.9 degrees, pulse 89, respirations 21, blood pressure 126/64. General: This is a chronically ill-appearing elderly male. He is in no acute distress. Head, Eyes, Ears, Nose, and Throat: He can hear my spoken words and see near objects. He is wearing glasses. As mentioned above, I noticed that he has some white patches on his tongue. Neck: No meningismus. Lungs: Clear to auscultation. Cardiovascular: Heart rate is regular. Abdomen: Soft and nontender. Neurologic: The patient is alert. He is able to ambulate. There is no tremor. LAB AND X-RAY: There is no new radiographic study for today. Laboratory studies show a CBC with a white count of 14,120, hemoglobin 10.4, and platelet count 378,000. Creatinine is 0.5. GFR is greater than 60. IgA is 407, IgG is 863. ASSESSMENT AND PLAN: The patient has pneumonia. He will be sent home on intravenous ceftazidime. The plan is to have the patient come in my office at 2 weeks for examination and repeat chest x- ray. Most likely, the patient will require another 1 to 2 weeks in addition. The patient, as mentioned above, has been discovered to have oral candidiasis. I have sent electronically a prescription for Mycelex troches to be put on the patient's tongue and let dissolve every 8 hours. I have put in a prescription for 42, which will last 2 weeks, and then there is a refill. I agree with Dr. Roberson that the patient is going to take longer to clear up his pneumonia because he has very severe lung disease. The patient's immunoglobulin levels are in the normal range. Therefore, the patient does not have an immunoglobulin deficiency, and the patient does not require immunoglobulin treatment. COMORBIDITIES: The patient is elderly. He has chronic obstructive pulmonary disease and gastroesophageal reflux disease. cc: Xander Mcclain MD
[2019-06-09] MEDS: PEPCID PO SCH ×2 (08:30→19:59)
[2019-06-09] MEDS: MYCOSTATIN SUSP PO SCH ×5 (08:30→19:59)
[2019-06-09] MEDS: ALDACTONE PO SCH (08:30)
[2019-06-09] MEDS: LANOXIN PO SCH (08:30)
[2019-06-09] MEDS: LOVENOX SUBQ SCH (08:31)
--- NOTE | 2019-06-09 08:59 | PROGRESS NOTE ---
DATE: 06/09/2019 SUBJECTIVE: Mr. Soto presented with shortness of breath. He is a patient of Dr. Carlos A Edmondson. A 64-year-old gentleman with history of COPD, chronic back pain, hypertension, presented to the emergency room complaining of shortness of breath and fever for 2 days. Reports temperature between 102 and 103. He was taking 600 mg of Motrin every 8 hours for this. Denied any sick contacts, any chest pain or palpitations. X-ray revealed left lower lobe pneumonia. Blood cultures were obtained. Admitted with left lower lobe pneumonia, exacerbation of COPD. States he is breathing better. PAST MEDICAL HISTORY: Reviewed again. 1. COPD. 2. Chronic back pain. 3. Hypertension. 4. Pulmonary fibrosis. 5. Pneumonia back in 01/2017, bilateral cavitary lesions. PAST SURGICAL HISTORY: Hand surgery. OBJECTIVE: Vital Signs: Temp is 98.9 degrees, pulse 73, respirations 18, blood pressure 116/53. HEENT: Pupils are equal and round. Lungs: Clear in all lung arellano anterolateral and posterior. Cardiovascular: Regular rhythm and rate without murmur or S3. Abdomen: Soft. Skin: Warm and dry. Urine output is 6900. ASSESSMENT: 1. Paroxysmal supraventricular tachycardia, probably secondary to metabolic stress with his pneumonia and gram-negative pneumonia. 2. Advanced chronic obstructive pulmonary disease and pulmonary fibrosis, cavitary lesions in the lung. We are ruling out a fungus ball in the right upper lobe. 3. Coronary artery disease noted on CT scan of the chest. 4. Former smoker. 5. Chronic back pain. 6. Hypertension. IMAGING: Echocardiogram done on 06/07/2019: Normal left ventricular systolic function. Sclerosis of the aortic valve without stenosis. No diastolic dysfunction. Pulmonary pressure is estimated at 53 mmHg. He had a [id number] degree of tricuspid regurgitation, and a trivial degree of mitral regurgitation. PLAN: The patient presented with acute hypoxemic respiratory failure, likely secondary to COPD disease and pneumonia. He has been on home oxygen before, so setting up his oxygen and his bronchodilators, and hopefully can get him ready to go home today. He would like to go home and get his oxygen concentrator. cc: Bandar Reyes MD
--- NOTE | 2019-06-09 11:07 | PROVIDER PROGRESS NOTE ---
Progress Note Evaluation time: 06/09/2019 SUBJECTIVE * Awake, in bed, no acute distress * Afebrile * C/O continuous yellow/greenish productive cough. * Deny hemoptysis or pleurisy. OBJECTIVE Vital Signs: T 98.9, BP 116/53, MI 69, RR 18, SaO2 99% on NC 3L PHYSICAL EXAMINATION: General: [id number]; malnourished, lying in bed in no acute distress. HEENT: Normocephalic, atraumatic. Trachea midline. Mucosa pink and moist. Respiratory: Barrel chest, even and unlabored; Symmetrical excursion; Auscultation revealed diminished breathing sounds bilaterally, prolonged expiratory phase, early inspiratory crackles bilaterally and rhonchi on right. Cardiovascular: Regular rate and rhythm with distant heart sounds. Gastrointestinal: Soft, nondistended, nontender, Bowel sounds normoactive in all 4 quadrants. Extremities: No pedal edema. No cyanosis. No clubbing. Dorsalis pedis 2+ bilaterally. Neurologic: Alert and oriented x 3; speech fluent; follow commands. LABORATORY DATA: White blood cell 14.12, hemoglobin 10.4, hematocrit 32.3, platelets 378,000. Sodium 132, potassium 3.8, chloride 94, carbon dioxide 28, BUN 8, creatinine 0.5, glucose 105. IMAGING DATA: No CXR today. ASSESSMENT: 1. Acute hypoxic respiratory failure. 2. Severe emphysema; small bilateral upper lobe apical cavities, upper lobe bronchiectasis, and LLL multiple small cavities. 3. Alcaligenes pneumonia 4. New onset supraventricular tachycardia. PLAN: 1. Continue supplemental oxygen. 2. Continue prolonged antibiotics per Dr. Mcclain; continue bronchodilators. 3. DC planning per Hospitalist. 4. Educate patient to follow up with our office within 1-2 weeks after discharge. Thank you for the consult.
--- NOTE | 2019-06-09 14:02 | CARDIOLOGY PROGRESS NOTE ---
DATE: 06/09/2019 CHIEF COMPLAINT: Shortness of breath, irregular heartbeat. SUBJECTIVE: Mr. Soto is generally doing better. His telemetry shows sinus rhythm. He denies having any chest pain. OBJECTIVE: Blood pressure is 116/53, temperature 98.9, pulse 73, respirations 18. He is awake, alert, in no distress. HEENT is unremarkable. Chest: Crepitans in the left base. Heart: Sounds regular and rhythmic. I do not hear a gallop or murmur. Abdomen is nontender. Extremities showed no edema. Neurologic: Follows commands. Moves all 4 extremities. DIAGNOSTIC DATA: His hemoglobin is 10.4, hematocrit 32.3, white cell count is 14,120. Sodium is 132, potassium 3.8, BUN is 8, creatinine 0.5. Albumin 2.6. IMPRESSION: 1. The patient presented with pneumonia. This is a gram-negative, left lung. 2. Paroxysmal supraventricular tachycardia which is probably secondary to the pneumonia. 3. Advanced chronic obstructive pulmonary disease, oxygen dependent. 4. Evidence of coronary atherosclerosis on CT imaging of the chest. 5. Chronic back pain. RECOMMENDATIONS: At this time, I would suggest to continue present medical therapy. The patient is gradually getting better. He is a high risk case, likely to be readmitted in the next few days if premature discharge takes place. We will see how he does. cc: Eliecer Ceja MD
[2019-06-10] MEDS: ATROVENT NEB INH SCH ×4 (03:30→21:20)
[2019-06-10] MEDS: XOPENEX NEB INH SCH ×4 (03:30→21:20)
[2019-06-10] MEDS: CARDIZEM PO SCH ×3 (04:43→20:37)
[2019-06-10] MEDS: NORCO-10 PO PRN ×4 (04:43→23:16)
[2019-06-10 05:59] LABS: AGAP 11; BUN 7 mg/dL (8-22); CALCIUM 8.5 mg/dL (8.8-10.2); CHLORIDE 92 mmol/L (98-107); COSMO 261; CREATININE 0.4 mg/dL (0.7-1.2); ESTIMATED GFR > 60; GLUCOSE 99 mg/dL (70-104); POTASSIUM 3.8 mmol/L (3.5-5.1); SODIUM 131 mmol/L (136-145); TCO2 28 mmol/L (25-35)
[2019-06-10] MEDS: TAZIDIME 2 GM/NS 2 GM/100 ML IVPB IV SCH ×3 (06:16→23:17)
[2019-06-10] MEDS: PRILOSEC PO SCH (06:16)
--- NOTE | 2019-06-10 08:06 | INFECTIOUS DISEASE PROGRESS NO ---
DATE: 06/10/2019 PRESENT ILLNESS: The patient has an alcaligenes pneumonia and oral candidiasis. MEDICATIONS: This is the third day of IV ceftazidime and the first day of nystatin. The ceftazidime is for the pneumonia and the nystatin is for the patient's oral candidiasis. PHYSICAL EXAMINATION: Vital Signs: Temperature is 100 degrees, pulse 80, respirations 20, blood pressure 120/60. General: This is a chronically ill-appearing elderly male, and he is in no acute distress. Head, eyes, ears, nose, and throat: He can hear my spoken words. He is wearing glasses. He can see near objects. He has less white coating of his tongue than he did yesterday. Thorax: The patient has an increased AP diameter of the chest. Neck: No pain with movement of his neck. Lungs: Clear to auscultation. Cardiovascular: Heart rate is regular. Abdomen: Soft and nontender. Extremities: The patient's right arm has a PICC in it. The arm is not erythematous or swollen. The patient's left arm has an area of phlebitis where he had a peripheral IV in place. Neurologic: The patient is alert. He is able to ambulate. He does not have a tremor. LAB AND X-RAY: There is not an x-ray for today. The patient's CBC from yesterday showed a white count of 14,120, hemoglobin 10.4, and platelet count of 378,000. The patient's creatinine is 0.4. The GFR is greater than 60.. ASSESSMENT AND PLAN: Patient has an alcaligenes pneumonia, for which he is on ceftazidime and will be sent home on ceftazidime through a PICC in his right arm. The patient also has oral candidiasis, and I will plan on continuing that or Mycelex troches when he goes home. I plan to treat the patient for anywhere from 2 to 4 weeks for his pneumonia because of his underlying severe lung disease. I will keep the troches going as long as the patient is on antibiotics. I am going to either print up a prescription or electronically send a prescription for the patient's troches for when he goes home. COMORBIDITIES: The patient is elderly. He has chronic obstructive pulmonary disease and gastroesophageal reflux disease. cc: Xander Mcclain MD
--- NOTE | 2019-06-10 08:19 | CARDIOLOGY PROGRESS NOTE ---
DATE: 06/10/2019 CHIEF COMPLAINT: Dyspnea, irregular heart beat. SUBJECTIVE: Mr. Soto in general feels better. There have been short rounds of SVT, nothing sustained. He believes he is ready for discharge. OBJECTIVE: VITAL SIGNS: Temperature 99.3 degrees, pulse 75, respirations 21, blood pressure 129/61. GENERAL: He is awake, follows commands. HEENT: Unremarkable. CHEST: Diminished breath sounds with crepitance in the left base. HEART: Sounds regular rhythmic. I do not hear a gallop or murmur. ABDOMEN: Nontender. EXTREMITIES: Show no edema. He appears to be generally debilitated. Blood work today: Sodium 131, potassium 3.8, BUN 7, creatinine 0.4. IMPRESSION: 1. Patient has developed supraventricular tachycardia. 2. Left lung pneumonia. 3. Advanced COPD. 4. Coronary atherosclerosis. 5. Chronic back pain. RECOMMENDATIONS: At this time, he appears to be stable. From my viewpoint, he can probably be discharged. He needs to follow up with his primary doctor. Thank you for the opportunity to participate in his evaluation. cc: Eliecer Ceja MD
[2019-06-10] MEDS: ALDACTONE PO SCH (08:37)
[2019-06-10] MEDS: PEPCID PO SCH ×2 (08:37→20:37)
[2019-06-10] MEDS: MYCOSTATIN SUSP PO SCH ×4 (08:37→20:38)
[2019-06-10] MEDS: LOVENOX SUBQ SCH (08:37)
[2019-06-10] MEDS: LANOXIN PO SCH (08:37)
--- NOTE | 2019-06-10 09:19 | PROGRESS NOTE ---
DATE: 06/10/2019 SUBJECTIVE: Mr. Soto is feeling much better. He feels stronger and is breathing more comfortably. OBJECTIVE: Vital Signs: Temperature 98.2 degrees, pulse 78, respirations 20, blood pressure 115/51. Eyes: Pupils are equal and round. Lungs: Clear in all lung arellano. Cardiovascular exam: Regular rhythm and rate without murmur or S3. Abdomen: Soft. Skin: Warm and dry. : Urine output is almost 3 L. ASSESSMENT AND PLAN: 1. Patient has developed supraventricular tachycardia. Appears to be stable. We will attempt to try discharge, and see if we can set him up to go home tomorrow morning. 2. Left lung pneumonia, which is improved. 3. Enhanced chronic obstructive pulmonary disease. 4. Coronary atherosclerosis. 5. Chronic back pain. He has oral candidiasis and alcaligenes pneumonia. This is the third day of ceftazidime and first day of my statin. We will see if we can get things set up for him to go home tomorrow. We got his oxygen ready. He would like to go home. We will continue physical therapy and add some occupational therapy. Reviewed his orders: He is on digoxin 250 mcg daily Cardizem 60 mg q. 8 hours, Pepcid 20 mg b.i.d., hydrocodone 10 mg q. 6 to 8 hours, ipratropium bromide 0.5 mg q. 6 hours, Xopenex 1.25 mg q. 6 hours, Prilosec 40 mg daily, spironolactone 25 mg daily, and his ceftazidime 2 g IV q. 8 hours. Review of his lab this morning: White count has come down from yesterday, it was 14,120, hematocrit 32, platelet count is 378,000. Chemistry this morning: Sodium 131, potassium 3.8, chloride 92. BUN is 7, creatinine 0.7. cc: Bandar Reyes MD
[2019-06-11] MEDS: ATROVENT NEB INH SCH ×2 (03:13→09:15)
[2019-06-11] MEDS: XOPENEX NEB INH SCH ×2 (03:14→09:15)
[2019-06-11] MEDS: CARDIZEM PO SCH ×2 (05:32→12:21)
[2019-06-11] MEDS: PRILOSEC PO SCH ×2 (05:34→06:25)
[2019-06-11] MEDS: TAZIDIME 2 GM/NS 2 GM/100 ML IVPB IV SCH (06:19)
[2019-06-11] MEDS: NORCO-10 PO PRN ×2 (06:19→12:21)
--- NOTE | 2019-06-11 06:20 | PROGRESS NOTE ---
DATE: 06/11/2019 Mr. Lenz had a pretty good night and feeling better, a little stronger and wants to go home today. OBJECTIVE: Temperature is 98.4 degrees, pulse 66, respirations 19, blood pressure 124/59. Pupils are equal and round. Lungs are clear in all lung arellano. Cardiovascular: Regular rate without murmur or S3. Abdomen is soft. Skin is warm and dry. ASSESSMENT AND PLAN: 1. The patient with supraventricular tachycardia which appears to be stable and back in sinus rhythm. I think he would like to go home today. 2. Left lung pneumonia which is improved. 3. Advanced chronic obstructive pulmonary disease with exacerbation. 4. Coronary atherosclerosis. 5. Chronic back pain. 6. So, will see if we can get him home today. Arrange for home health. cc: Bandar Reyes MD
--- NOTE | 2019-06-11 06:35 | DISCHARGE SUMMARY ---
ADMISSION DATE: 06/03/2019 DISCHARGE DATE: HISTORY: He is a patient of Dr. Carlos A Edmondson. A 64-year-old with history of COPD, chronic back pain, hypertension, presented to the emergency department complaining of shortness of breath for a couple days, 2 days. He reports having fever between 102 and 103. States he has been taking 600 mg of Motrin every 8 hours. Denied any sick contacts, chest pain or palpitations. Chest x-ray revealed left lower lobe pneumonia. Blood cultures were obtained. He was given azithromycin and admitted to the hospital. PAST MEDICAL HISTORY: 1. COPD. 2. Chronic back pain. 3. Hypertension. 4. Pulmonary fibrosis. 5. Pneumonia in January 2017, bilateral cavitary lesions. PAST SURGICAL HISTORY: Hand surgery. ADMISSION DIAGNOSES: 1. Left lower lobe pneumonia, exacerbation of chronic obstructive pulmonary disease with fever and cough. 2. Hypertension. 3. Constipation. 4. Chronic back pain. 5. Hyponatremia. HOSPITAL COURSE: Had a CT of his chest done on 06/03/2019, revealed left lower lobe pneumonia, severe emphysema, prominent apical scarring with small cavitaries and bronchiectasis. Dr. Bullock was consulted, reproduction production manager, and felt he had severe COPD, emphysematous type, on home oxygen already since 2016, and he is on Advair and Atrovent, Combivent, reports that he only uses DuoNeb 4 to 6 times a day, not using any other inhaler at this time. Also, appreciate some pulmonary fibrosis, history of gastroesophageal reflux disease, and history of severe bilateral pneumonia, cavitary lesion back in January 2017, bronchoscopy done in 02/13/[address] Bullock. Also, had recurrent pneumonia between 2014 and 2016. He was given broad-spectrum antibiotics, continued to show some improvement. Chest x-ray on 06/06, probably infected cavitary cavity of the left apex, worsened left lower lobe pneumonia. He had a Coello catheter in place. Echocardiogram done on 06/07/2019 showed normal left ventricular systolic function, sclerosis of the aortic valve without stenosis. No diastolic dysfunction, pulmonary pressure estimated at 53 mmHg. Mild to moderate degree of tricuspid regurgitation. Trivial degree of mitral regurgitation. He seemed to improve as far as his air and gas exchange. [place] to have acute hypoxemic respiratory failure, likely secondary to COPD disease and pneumonia. Cardiology was consulted, Dr. Ceja evaluated. He developed some paroxysmal supraventricular tachycardia, probably secondary to metabolic stress of ongoing acute pulmonary process. He has a gram-negative pneumonia. Because advanced COPD and cavitary lesion, I wanted to rule out fungus ball. Dr. Mcclain from Infectious Disease was following as well. 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 Clinically, the patient continued to improve. I felt like we could try and get him home on 06/11/2019. He is back in sinus rhythm and felt he could continue to get some antibiotics at home. Continue physical therapy, but he would like to go home with home health. DISCHARGE MEDICATIONS: He is going to continue to get digoxin 250 mg p.o. daily. We will change his Cardizem 60 q.8 hours to 180 mg once a day, Pepcid 20 mg twice a day, [place] 10 mg q.6 hours p.r.n., Prilosec 40 mg a day, spironolactone 25 mg daily. We will see if we can set him up some nebulized breathing treatments for home. He is supposed to be on Respimat 20-100 two puffs q.6 hours, Atrovent 0.5 mg q.6 hours, Advair 250/50 one puff b.i.d. We will continue his Mycelex troches, amlodipine, Norvasc 10 mg q.a.m., and albuterol sulfate 0.63 mg inhalation 4 times a day as needed. cc: Bandar Reyes MD
[2019-06-11 07:30] LABS: AGAP 10; BUN 5 mg/dL (8-22); CALCIUM 8.7 mg/dL (8.8-10.2); CHLORIDE 92 mmol/L (98-107); COSMO 264; CREATININE 0.6 mg/dL (0.7-1.2); ESTIMATED GFR > 60; GLUCOSE 107 mg/dL (70-104); POTASSIUM 3.6 mmol/L (3.5-5.1); SODIUM 133 mmol/L (136-145); TCO2 31 mmol/L (25-35)
[2019-06-11] MEDS: PEPCID PO SCH (08:03)
[2019-06-11] MEDS: LANOXIN PO SCH (08:03)
[2019-06-11] MEDS: MYCOSTATIN SUSP PO SCH ×2 (08:04→12:21)
[2019-06-11] MEDS: ALDACTONE PO SCH (08:04)
[2019-06-11] MEDS: LOVENOX SUBQ SCH (08:05)
--- NOTE | 2019-06-11 08:32 | Diag Imaging Result Doc PS360 ---
EXAM: CHEST-1 VIEW 06/11/2019 HISTORY: SOB TECHNIQUE: AP portable at 0553 COMMENT: There is apical pleural thickening bilaterally. There is fibrotic change and bullous emphysema in the lung apices. There is ill-defined opacity and volume loss in the left lower lobe. The latter abnormality may be slightly improved since the previous study of 06/06/2019. Otherwise, there has been no significant change. IMPRESSION: Slightly improved left lower lobe pneumonia. Electronically signed by Sudheer Fowler 06/11/2019 8:29 AM
[2019-06-11 11:52] VITALS: BP 132/56
== END 2019-06-11 14:06 | disposition home health service (06) | DRG 190 ==
LOC: ED 08:44 → SUATTDRO 12:03 → EDIPHOLD 12:03 → 3N 17:07 → 3S 06-06 12:12 → 2N 06-10 12:20
PROVIDERS: ATTEND Emergency Medicine